=== PATIENT | male | born 1960 | race Caucasian/White ===

== ENCOUNTER 2019-10-20 08:58 | Outpatient (NON) | payer MEDICARE, MEDICAID, SELFPAY ==
[2019-10-20 23:23] LABS: SARS-CoV-2 RNA PCR Negative
== END 2019-10-20 08:59 ==
PROVIDERS: PCP Family Medicine; Visit Provider Family Medicine
DX: Z20.828 Contact with and (suspected) exposure to other viral communicable diseases (principal); J20.9 Acute bronchitis, unspecified
CPT/HCPCS: 87635; C9803; U0003

== ENCOUNTER 2019-11-25 07:51 | Outpatient (CLI) | payer MEDICARE, MEDICAID, SELFPAY ==
--- NOTE | 2019-11-25 07:57 | ECHO_ITS ---
Patient Info Name: Eulalio Arellano Age: 59 years : 1960 Gender: Male Ht: 69 in Wt: 175 lbs BSA: 1.98 m2 HR: 60 bpm BP: 141 / 90 mmHg Heart Rhythm: Sinus Rhythm Technical Quality: Good Exam Date: 11/25/2019 8:11 AM Exam Location: [facility] Pulmonary Patient Status: Outpatient Admit Date: 11/25/2019 Staff Ordering Physician: Deion Medellin MD Senior Salesforce Developer: David Estrada RDCS Attending Provider: Deion Medellin MD Referring Physician: Lacie GERONIMO; Exam Type: CA echo doppler color flow Study Info Indications I10 - Essential (primary) hypertension Complete two-dimensional, color flow and Doppler transthoracic echocardiogram is performed. Strain analysis performed. History/Risk Factors Hypertension. Summary 1. Complete two-dimensional, color flow and Doppler transthoracic echocardiogram is performed. 2. Left ventricular chamber dimension is normal. 3. Left ventricular systolic function is normal, estimated at 60-65%. 4. The left ventricular diastolic function is grade I diastolic dysfunction. 5. E/e' 8 is minimally elevated. 6. Global longitudinal strain is mildly abnormal at -16.3%. 7. There is mild tricuspid valve regurgitation. 8. No pulmonary hypertension, estimated pulmonary arterial systolic pressure is 30 mmHg. Left Ventricle E/e' 8 is minimally elevated. Global longitudinal strain is mildly abnormal at -16.3%. Left ventricular chamber dimension is normal. Left ventricular systolic function is normal, estimated at 60-65%. The left ventricular diastolic function is grade I diastolic dysfunction. Right Ventricle Right ventricular chamber dimension is normal. Right ventricular systolic function is normal. Left Atria Left atrial chamber dimension is normal. Right Atria Right atrial chamber dimension is normal. Aortic Valve The aortic valve is trileaflet. There is no aortic valve stenosis. There is no aortic valve regurgitation. Pulmonic Valve There is no pulmonic regurgitation. Mitral Valve There is no mitral valve stenosis. There is no mitral valve regurgitation. Tricuspid Valve There is mild tricuspid valve regurgitation. No pulmonary hypertension, estimated pulmonary arterial systolic pressure is 30 mmHg. Pericardium/Pleural There is no pericardial effusion. Inferior Vena Cava Normal inferior vena cava with >50% collapse upon inspiration consistent with normal right atrial pressure, 5 mmHg. Aorta The aortic root size at the sinus of Valsalva is normal. Left Ventricular Outflow Tract Name Value Normal LVOT 2D LVOT Diameter 2.0 cm LVOT Doppler LVOT Peak Gradient 4 mmHg LVOT Mean Gradient 2 mmHg LVOT VTI 19 cm LVOT VTI/AV VTI Ratio 0.9 LVOT Stroke Volume 61 ml LVOT CO 3.7 l/min LVOT CI 1.9 l/min/m2 Mitral Valve Name
--- NOTE | 2019-11-25 07:57 | EST_ITS ---
Patient Info Name: Eulalio Arellano Age: 59 years : 1960 Gender: Male Ht: 69 in Wt: 175 lbs BSA: 1.98 m2 Exam Date: 11/25/2019 9:26 AM Exam Location: [facility] Stress Patient Status: Outpatient Admit Date: 11/25/2019 Staff Ordering Physician: Deion Medellin MD Attending Provider: Deion Medellin MD Exercise Technologist: Carlos Subramanian RDCS, RT Exercise Physician: Titi Costello DO Exam Type: CA stress test treadmill Study Info An exercise stress test was performed. Summary 1. 1. Negative Tda exercise stress test for ischemic ST changes by ECG criteria. However, he achieved only 75% MPHR for age group which reduces sensitivity of the test due to sciatica. 2. 2. Reduced functional capacity, achieving 7 METs of workload. 3. 3. Baseline hypertension and hypertensive response to exercise. 4. 4. Appropriate HR response to exercise. 5. 5. Appropriate HR recovery at 1 minute post exercise. 6. 6. No imaging with stress testing. 7. 7. Patient informed of the above results. Protocol: [facility]ad Stress ECG Details Stage: REST Duration (min): 3 min : 34 sec Speed (mph): 0.0 Grade (%): 0 HR (bpm): 66 SBP (mmHg): 165 DBP (mmHg): 112 METS: --- Stage: REST Duration (min): 12 min : 26 sec Speed (mph): 0.0 Grade (%): 0 HR (bpm): 72 SBP (mmHg): 165 DBP (mmHg): 112 METS: --- Stage: STAGE 1 Duration (min): 1 min : 0 sec Speed (mph): 1.7 Grade (%): 10 HR (bpm): 84 SBP (mmHg): 165 DBP (mmHg): 112 METS: --- Stage: STAGE 1 Duration (min): 2 min : 0 sec Speed (mph): 1.7 Grade (%): 10 HR (bpm): 95 SBP (mmHg): 165 DBP (mmHg): 112 METS: --- Stage: STAGE 1 Duration (min): 3 min : 0 sec Speed (mph): 1.7 Grade (%): 10 HR (bpm): 98 SBP (mmHg): 172 DBP (mmHg): 93 METS: --- Stage: STAGE 2 Duration (min): 1 min : 0 sec Speed (mph): 2.5 Grade (%): 12 HR (bpm): 109 SBP (mmHg): 172 DBP (mmHg): 93 METS: --- Stage: STAGE 2 Duration (min): 2 min : 0 sec Speed (mph): 2.5 Grade (%): 12 HR (bpm): 114 SBP (mmHg): 189 DBP (mmHg): 94 METS: --- Stage: STAGE 2 Duration (min): 2 min : 59 sec Speed (mph): 2.5 Grade (%): 12 HR (bpm): 120 SBP (mmHg): 189 DBP (mmHg): 94 METS: --- Stage: RECOVERY Duration (min): 1 min : 0 sec Speed (mph): 0.0 Grade (%): 0 HR (bpm): 111 SBP (mmHg): 189 DBP (mmHg): 94 METS: --- Stage: RECOVERY Duration (min): 2 min : 0 sec Speed (mph): 0.0 Grade (%): 0 HR (bpm): 95 SBP (mmHg): 189 DBP (mmHg): 94 METS: --- Stage: RECOVERY Duration (min): 3 min : 0 sec Speed (mph): 0.0 Grade (%): 0 HR (bpm): 96 SBP (mmHg): 220 DBP (mmHg): 117 METS: --- Stage: RECOVERY Duration (min): 4 min : 0 sec Speed (mph): 0.0 Grade (%): 0 HR (bpm): 85 SBP (mmHg): 220 DBP (mmHg): 117
--- NOTE | 2019-11-25 08:06 | ECG_ITS ---
Measurements Intervals [place] Rate: 65 P: 70 MA: 181 QRS: 9 QRSD: 86 T: 46 QT: 367 QTc: 383 Interpretive Statements SINUS RHYTHM RSR' IN V1 OR V2, PROBABLY NORMAL VARIANT BORDERLINE ECG Electronically Signed On 11-25-2019 8:20:30 CDT by Titi Costello D.O.
== END 2019-11-25 07:52 | disposition home or self-care (01) ==
PROVIDERS: PCP Family Medicine; Visit Provider Family Medicine
DX: I10 Essential (primary) hypertension (principal); R53.83 Other fatigue; R94.31 Abnormal electrocardiogram [ECG] [EKG]
CPT/HCPCS: 93005; 93017; 93306

== ENCOUNTER → 2019-12-31 16:44 | Outpatient (CLI) | payer MEDICARE, MEDICAID, SELFPAY ==
--- NOTE | ~2019-12-31 | XR_ITS ---
XR chest 2V 12/31/2019 17:05 Indication: Cough for 3-4 months. Fatigue. Procedure: 2 view chest Comparison: 11/25/2017 Findings: There is asymmetry at the right apex. Follow-up CT chest with contrast recommended to exclu de parenchymal mass. Heart size normal. Left basilar atelectasis. No pneumothorax. No acute osseous a bnormality. Impression: 1: Asymmetric opacification at the right apex. Follow-up CT recommended to exclude parenchymal mass. Reviewed, dictated and finalized at location A. Impression: 1: Asymmetric opacification at the right apex. Follow-up CT recommended to excl ude parenchymal mass.
== END ==
PROVIDERS: PCP Family Medicine; Visit Provider Family Medicine
DX: R53.83 Other fatigue (principal)
CPT/HCPCS: 71046

== ENCOUNTER 2020-01-05 07:53 | Outpatient (CLI) | payer MEDICARE, MEDICAID, SELFPAY ==
--- NOTE | ~2020-01-05 | CT_ITS ---
EXAMINATION: CT chest w con DATE: 01/05/2020 08:32 INDICATION: Right-sided chest pain TECHNIQUE: Transaxial computed tomographic images of the chest were obtained after the administration of 75 cc of Omnipaque 350 intravenous contrast. The dose-length product (DLP) was 188.90 mGy-cm. Ite rative reconstruction was used. COMPARISON: 12/31/2019 FINDINGS: No CT correlate is identified for the abnormality described on the chest radiograph. There is moderate emphysema. There is a 5 mm nodule of the right middle lobe on image 64. A 5 mm nodule is also noted in the right upper lobe on image 61. There is mild dependent atelectasis. No focal airspac e opacities are identified. There is no pleural effusion or pneumothorax. No pathologically enlarged thoracic lymph nodes are identified. The heart size is normal. There is mild thoracic spondylosis. IMPRESSION: 1. No CT correlate for the abnormality described on recent chest radiograph. 2. Moderate emphysema. 3. Right lung nodules measuring up to 5 mm which may reflect old granulomatous disease. Consider foll ow-up CT in 12 months. Reviewed, dictated and finalized at location A. MENT PROCESSOR IMPRESSION: 1. No CT correlate for the abnormality described on recent chest radiograph. 2. Moderate emphysema. 3. Right lung nodules measuring up to 5 mm which may reflect old granulomatous disease. Consider follow-up CT in 12 months.
--- NOTE | ~2020-01-05 | CT_ITS ---
EXAMINATION: CT brain wo con EXAM DATE: 01/05/2020 08:32 INDICATION: R41.0 - Disorientation, unspecified. Right-sided chest pain. Feeling of balance. Cough. TECHNIQUE: Spiral CT of the head was performed without contrast. Axial, coronal and sagittal images were reviewed. The dose-length product (DLP) for this examination was 681.00 mGy-cm. The exposure w as tailored according to patient size, and iterative reconstruction (ASIR) was used as additional dos e reduction technique. Comparison is made to prior examination from 12/15/2003. FINDINGS: There is no acute intraparenchymal hemorrhage. No evidence of intraparenchymal brain mass lesion. No evidence of acute infarction. There is no mass effect or midline shift. The ventricles are normal in size. There are no extra-axial collections. There are no acute calvarial fractures. T he orbits are unremarkable. Soft tissue is unremarkable. The visualized sinuses and mastoid air yvrose ls are well aerated. IMPRESSION: 1. Unremarkable head CT examination. Reviewed, dictated and finalized at location B. OWING MACHINE OPERATOR
== END 2020-01-05 07:54 | disposition home or self-care (01) ==
PROVIDERS: PCP Family Medicine; Visit Provider Family Medicine
DX: R27.0 Ataxia, unspecified (principal); R41.0 Disorientation, unspecified; J43.9 Emphysema, unspecified; R92.8 Other abnormal and inconclusive findings on diagnostic imaging of breast
CPT/HCPCS: 70450; 71260; Q9967

== ENCOUNTER 2020-12-27 12:44 | Outpatient (CLI) | payer MEDICARE, MEDICAID, SELFPAY ==
--- NOTE | ~2020-12-27 | XR_ITS ---
EXAMINATION: XR knee LT 3V DATE: 12/27/2020 13:10 INDICATION: Medial left knee pain. TECHNIQUE: 3 views of left knee were obtained. COMPARISON: None. FINDINGS: Bone alignment is normal. No fracture. There is mild osteoarthritis of medial and patellofe moral compartments characterized by tiny marginal osteophytes. No joint space narrowing. No knee join t effusion. IMPRESSION: 1. Mild left knee osteoarthritis. Reviewed, dictated and finalized at location A.
== END 2020-12-27 12:45 | disposition home or self-care (01) ==
LOC: ANHIMG 12:50
PROVIDERS: PCP Family Medicine; Visit Provider Family Medicine
DX: M17.12 Unilateral primary osteoarthritis, left knee (principal)
CPT/HCPCS: 73562

== ENCOUNTER 2021-03-20 03:24 | Emergency (ER) | payer MEDICARE, MEDICAID, SELFPAY ==
[2021-03-20] VITALS (10 sets, daily range): BP systolic 120–145; BP diastolic 91–102; PULSE 96–114; RESP 18–20; TEMP 36.2; O2SAT 96–99
--- NOTE | 2021-03-20 04:08 | ED.BACK ---
HPI - Back Pain/Injury General Chief Complaint: Back Pain/Injury Stated Complaint: lower back pain chronic Time Seen by Provider: 03/20/21 04:06 History of Present Illness HPI Narrative: Patient is a 60-year-old male with history of chronic low back pain as well as back surgery who presents ER with increased pain. Reports he recently returned from a trip to [facility]. Reports when he came back and hit the cold air he started having spasms in his back. Worsening over the last 5 days. Reports he stopped taking his home oxycodone/meloxicam/cyclobenzaprine/Lyrica because he was having increase in his pain and the medications were not helping and he did not want to potentially abuse his medication. He has no fevers or chills or sweats. Has chronic radicular discomfort that goes down his right leg that is worse at this time due to the pain. No difficulty with urination/defecation. No known trauma. Patient is able to walk. Pain is worse with movement. Related Data Allergies Allergy/AdvReac Type Severity Reaction Status Date / Time No Known Allergies Allergy Verified 03/20/21 03:25 Review of Systems Review of Systems: All systems reviewed & are unremarkable except as noted in HPI and below Constitutional: Constitutional: Denies chills, Denies fever(s) and Denies weakness Cardiovascular: Cardiovascular: Denies chest pain and Denies radiating jaw, neck or arm pain Gastrointestinal: Gastrointestinal: Denies abdominal pain, Denies nausea and Denies vomiting Musculoskeletal: Musculoskeletal: Reports back pain, Denies arthralgias, Denies joint swelling and Reports muscle cramps Neurologic: Denies headache(s), Denies focal weakness and Denies numbness [facility] Past Medical History Medical History (Updated 03/20/21 @ 06:11 by Yang Dudley MD) Abnormal chest x-ray Acne vulgaris Actinic keratosis Acute bronchitis Anxiety Asthma Ataxia Back pain BMI 27.0-27.9,adult BMI 28.0-28.9,adult Confusion COPD (chronic obstructive pulmonary disease) Encounter for screening colonoscopy Fatigue Folliculitis (~10/19/20) Gastro-esophageal reflux disease without esophagitis Hemorrhoids Knee pain, left Peptic ulcer disease Skin ulceration Tick bite Tobacco use disorder, continuous Vitamin B12 deficiency anemia Surgical History Surgical History (Updated 03/20/21 @ 06:11 by Yang Dudley MD) History of back surgery Family History Family History Mother Patient's mother is , Onset Age: 76 Father Patient's father is , Onset Age: 79 Social History Social History Smoking status: Current every day smoker Alcohol intake: never Substance use: current Gender identity (if verbalized by the patient): Male Exam Narrative: GENERAL: Uncomfortable-appearing, well-nourished, and in no acute distress. HEAD: Normocephalic, atraumatic. NECK: Supple. CHEST: Clear to auscultation. No respiratory distress. HEART: Regular rate and rhythm. Normal peripheral pulses. ABDOMEN: Soft, nontender, nondistended. Back: No reproducible midline tenderness of the T/L-spine. There is increased pain in the L4 region of the low back paraspinal musculature bilaterally with palpable spasm. No bruising or abrasion. No evidence of cellulitis. EXTREMITIES: Normal range of motion. No edema. SKIN: Warm, dry, no rash. NEURO: Alert and oriented x3. Course Course Emergency Course: Patient reports improvement in his pain with IV Valium and Toradol. Feels he can go home and restart his home medication to control his pain. Recommend follow-up with PCP. Vital Signs Vital signs: Vital Signs Temperature 97.2 F L 03/20/21 03:28 Pulse Rate 114 H 03/20/21 03:28 Respiratory Rate 20 03/20/21 03:28 Blood Pressure 145/102 H 03/20/21 03:28 Pulse Oximetry 98 03/20/21 03:28 Temperatur
[2021-03-20] MEDS: KETOROLAC 30 MG/ML VIAL (*BKC) IV PUSH (04:44)
[2021-03-20] MEDS: diazePAM INJ (*CRX) 10 MG/2 ML SYRINGE 5 MG IV PUSH (04:44)
== END 2021-03-20 06:34 | disposition home or self-care (01) ==
PROVIDERS: Emergency Provider Emergency Medicine; PCP Family Medicine
DX: M62.830 Muscle spasm of back (principal); J44.9 Chronic obstructive pulmonary disease, unspecified; K21.9 Gastro-esophageal reflux disease without esophagitis; D51.9 Vitamin B12 deficiency anemia, unspecified; G89.29 Other chronic pain; F41.9 Anxiety disorder, unspecified; Z87.11 Personal history of peptic ulcer disease; F17.200 Nicotine dependence, unspecified, uncomplicated
CPT/HCPCS: 96374; 96375; 99284; J1885; J3360

== ENCOUNTER 2021-06-05 09:23 | Emergency (ER) | payer MEDICARE, SELFPAY ==
[2021-06-05] VITALS (18 sets, daily range): BP systolic 104–125; BP diastolic 66–111; PULSE 83–113; RESP 10–28; O2SAT 92–96
--- NOTE | ~2021-06-05 | XR_ITS ---
EXAMINATION: XR chest 2V DATE: 06/05/2021 10:45 INDICATION: Shortness of breath and cough. TECHNIQUE: Frontal and lateral views of the chest were obtained. COMPARISON: Chest 2 views 12/31/2019, chest CT 01/05/2020 FINDINGS: There are airspace opacities in right upper lobe, consistent with pneumonia. No pleural eff usion or pneumothorax. The heart size is normal. IMPRESSION: 1. Right upper lobe pneumonia. Follow-up radiographs are recommended in a few weeks to confirm resolu tion and exclude malignancy. Reviewed, dictated and finalized at location A. IMPRESSION: 1. Right upper lobe pneumonia. Follow-up radiographs are recommended in a few w eeks to confirm resolution and exclude malignancy.
--- NOTE | ~2021-06-05 | CT_ITS ---
EXAMINATION: CTA chest PE protocol DATE: 06/05/2021 11:21 INDICATION: Chest pain. Elevated d-dimer. TECHNIQUE: Computed tomography (CT) pulmonary angiogram of the chest was performed with 100 mL Omnipa que-350 intravenous contrast. Additional 3D reconstructions utilizing coronal maximum intensity proje ction (MIP) were performed. Automated exposure control and iterative reconstruction technique were em ployed. The dose-length product was 360.10 mGy-cm. COMPARISON: CT dated 02/01/2020 FINDINGS: Excellent contrast opacification of the pulmonary arteries. There is mild streak artifact from dense contrast in the superior vena cava and right atrium. Mild scattered respiratory motion artifact in th e lower lung zones which does not significantly limit evaluation. No pulmonary embolism. Moderate emp hysema. Contrast-enhanced pulmonary vasculature extends without significant architectural distortion through a large region of consolidation in the right upper lobe with less dense airspace disease incl uding both simple and thickening and groundglass opacities throughout much of the remaining right upp er lobe as well as in the posterior aspect of the right middle lobe. This be most consistent with pne umonia. Left lung is clear. No pulmonary edema, pleural effusion or pneumothorax. Heart size is luisana l. No pericardial effusion. Thoracic aorta is normal in caliber with no dissection. Likely reactive m ediastinal and right hilar lymphadenopathy. Visualized upper abdomen is unremarkable. Mild thoracic a nd severe lower cervical spondylosis. IMPRESSION: 1. No pulmonary embolism. 2. Dense consolidation in the right upper lobe with additional less severe lung disease in additional portion of the right upper lobe and right middle lobe most consistent with pneumonia. 3. Likely reactive mediastinal and right hilar lymphadenopathy. 4. Moderate emphysema. Reviewed, dictated and finalized at location B. IMPRESSION: 1. No pulmonary embolism. 2. Dense consolidation in the right upper lobe with additional less severe lung disease in additional portion of the right upper lobe and right middle lobe mo st consistent with pneumonia. 3. Likely reactive mediastinal and right hilar lymphadenopathy. 4. Moderate emphysema.
--- NOTE | 2021-06-05 09:27 | ED.SOB ---
HPI - SOB/Dyspnea General Chief Complaint: Shortness of Breath/Dyspnea <Amber Malik PA-C - Last Filed: 06/05/21 13:00> Stated Complaint: sob <TAVIA Urias Last Filed: 06/05/21 13:00> Time Seen by Provider: 06/05/21 09:27 <TAVIA Urias Last Filed: 06/05/21 13:00> Source: patient <TAVIA Urias Last Filed: 06/05/21 13:00> Mode of arrival: ambulatory <TAVIA Urias Last Filed: 06/05/21 13:00> Limitations: no limitations <TAVIA Urias Last Filed: 06/05/21 13:00> History of Present Illness HPI Narrative: Patient is a 61-year-old male with a past medical history of COPD, who presents to the ED with report of increased shortness of breath. He reports having increased shortness of breath, worse with exertion, for the past 4 days. He also reports having a productive cough with brown and white sputum and bilateral lower chest wall pain with coughing. Denies any known fever, but has had chills at home. No chest pain at rest, only with coughing. No swelling in the legs, pain in legs. Patient does not wear oxygen at home. Oxygen 94% on room air upon arrival. He reports he quit smoking 3 years ago. He has a history of chronic low back pain and is on several different pain medicines but states he has been in too much pain to take these over the past couple days. Patient does see his PCP for pain management. He reports he called his PCP about his SOB/cough last week and was required to take a Covid test, which was negative, but he did not end up seeing his doctor. Patient denies any saddle anesthesia, urinary retention, urinary incontinence, weakness in his legs. No new injury or fall. <TAVIA Urias Last Filed: 06/05/21 13:00> Related Data Allergies/Adverse Reactions: Allergies Allergy/AdvReac Type Severity Reaction Status Date / Time No Known Allergies Allergy Verified 03/20/21 03:25 <TAVIA Urias Last Filed: 06/05/21 13:00> Review of Systems Review of Systems: CONSTITUTIONAL: Denies fever, chills, or sweats. EYES: Denies visual changes, redness, or discharge. ENT: Denies rhinorrhea, congestion, sore throat, or otalgia. CARDIOVASCULAR: Denies chest pain, palpitations, or edema. RESPIRATORY: Denies cough or dyspnea. GASTROINTESTINAL: Denies abdominal pain, nausea, vomiting, or diarrhea. GENITOURINARY: Denies dysuria or hematuria. SKIN: Denies rash or itching. MUSCULOSKELETAL: Denies back pain, joint pain, or myalgia. NEUROLOGIC: Denies headache, numbness, or weakness. PSYCHIATRIC: Denies anxiety or depression. <Amber Malik PA-C - Last Filed: 06/05/21 13:00> All systems reviewed & are unremarkable except as noted in HPI and below <Amber Malik PA-C - Last Filed: 06/05/21 13:00> [facility] Past Medical History Medical History: Medical History Abnormal chest x-ray Acne vulgaris Actinic keratosis Acute bronchitis Anxiety Asthma Ataxia Back pain BMI 27.0-27.9,adult BMI 28.0-28.9,adult Chronic hip pain, bilateral Confusion COPD (chronic obstructive pulmonary disease) Encounter for screening colonoscopy Fatigue Folliculitis (~10/19/20) Gastro-esophageal reflux disease without esophagitis Hemorrhoids Knee pain, left Peptic ulcer disease Skin ulceration Tick bite Tobacco use disorder, continuous Vitamin B12 deficiency anemia <Amber Malik PA-C - Last Filed: 06/05/21 13:00> Surgical History Surgical History: Surgical History History of back surgery <Amber Malik PA-C - Last Filed: 06/05/21 13:00> Family History Family History: Family History Mother Patient's mother is , Onset Age: 76 Father Patient's father is , Onset Age: 79 <TAVIA Urias Last Filed: 06/05/21 13:00>
--- NOTE | 2021-06-05 09:36 | ECG_ITS ---
Measurements Intervals [place] Rate: 101 P: 69 UT: 163 QRS: 15 QRSD: 86 T: 52 QT: 323 QTc: 420 Interpretive Statements SINUS TACHYCARDIA ABNORMAL RHYTHM ECG COMPARED TO ECG 11/25/2019 08:14:28 SINUS TACHYCARDIA NOW PRESENT Electronically Signed On 06-06-2021 16:43:48 CDT by Montserrat Butcher M.D.
[2021-06-05] MEDS: KETOROLAC 30 MG/ML VIAL (*BKC) IV PUSH (09:59)
[2021-06-05 10:17] LABS: Basophils Percent Auto 0.2 % (0.2-1.2); Hematocrit 36.5 % (42.0-52.0); Hemoglobin 11.7 g/dL (14.0-18.0); Immature Granulocyte Absolute 0.27 K/mm3 (0.00-0.031); Immature Granulocyte Percent A 1.1 % (0-0.5); Lymphocytes Absolute Auto 1.71 K/mm3 (0.9-3.2); Lymphocytes Percent Auto 7.1 % (18.3-44.2); Mean Corpuscular HGB Conc 32.1 g/dl (32-36); Mean Corpuscular Volume 96.8 fl (80-100); Mean Platelet Volume 11.9 fl (7.4-10.4); Monocytes Absolute Auto 1.1 K/mm3 (0.1-0.6); Monocytes Percent Auto 4.6 % (2.6-8.5); Neutrophils Absolute Auto 20.8 K/mm3 (1.3-6.7); Platelet Count Result 603 k/mm3 (150-375); Red Blood Count 3.77 M/mm3 (4.6-6.20); Red Cell Distribution Width 14.6 % (11.5-14.5)
[2021-06-05 10:27] LABS: Alanine Aminotransferase 23 U/L (4-50); Albumin Level 3.7 g/dL (3.5-5.1); Alkaline Phosphatase 586 U/L (38-126); Anion Gap 10 mmol/L (8-16); Aspartate Amino Transferase 109 U/L (17-59); Bilirubin,Total 1.6 mg/dL (0.2-1.3); Blood Urea Nitrogen 29 mg/dL (9-20); Calcium 8.5 mg/dL (8.4-10.2); Carbon Dioxide 26 mmol/L (22-30); Chloride 100 mmol/L (98-107); Estimated CRCL calculation 57 ml/min; Estimated Glomerular Filt Rate > 60; Glucose 130 mg/dL (65-110); Potassium 4.2 mmol/L (3.4-5.0); Sodium 136 mmol/L (137-145)
[2021-06-05 10:37] LABS: Troponin I < 0.012 ng/mL (0.000-0.034)
[2021-06-05 11:02] LABS: D Dimer 2.34 ug/mL (<0.48)
--- NOTE | 2021-06-05 11:09 | PC.NURSE ---
pt ambulated around the nurses station maintaining pulse ox of 97%
== END 2021-06-05 12:50 | disposition home or self-care (01) ==
PROVIDERS: Physician Assistant; Emergency Provider Emergency Medicine; PCP Family Medicine
DX: J18.9 Pneumonia, unspecified organism (principal); J44.0 Chronic obstructive pulmonary disease with (acute) lower respiratory infection; F41.9 Anxiety disorder, unspecified; Z87.09 Personal history of other diseases of the respiratory system; Z87.19 Personal history of other diseases of the digestive system; Z87.891 Personal history of nicotine dependence
CPT/HCPCS: 36415; 71046; 71275; 80053; 84484; 85025; 85380; 93005; 96374; 99284; J1885; Q9967

== ENCOUNTER → 2021-06-12 09:01 | Outpatient (CLI) | payer MEDICARE, SELFPAY ==
[2021-06-12 11:47] LABS: SARS-CoV-2 RNA PCR Negative
== END ==
PROVIDERS: PCP Family Medicine; Visit Provider Family Medicine
DX: J18.9 Pneumonia, unspecified organism (principal); Z20.822 Contact with and (suspected) exposure to COVID-19
CPT/HCPCS: C9803; U0003; U0005

== ENCOUNTER → 2021-07-12 12:09 | Outpatient (CLI) | payer MEDICARE, MEDICAID, SELFPAY ==
--- NOTE | ~2021-07-12 | XR_ITS ---
XR chest 2V DATE: 07/12/2021 12:21 INDICATION: Chronic infective pulmonary disease. Smoker. TECHNIQUE: 2 views COMPARISON: 06/05/2021 CT pulmonary scan 06/05/2021 2 view chest 01/05/2020 CT chest FINDINGS: There is residual increased density in the right upper lung/apical area. Continued radiogra phic follow-up is recommended to ensure complete clearing in order to exclude any possible pulmonary mass/malignancy. The lungs otherwise appear clear. No pleural effusion or pulmonary vascular congestion or pneumothorax. Normal heart size. Mild aortic unfolding. Included skeletal structures are unremarkable. IMPRESSION: Persistent right upper lobe/apical increased density; continued radiographic follow-up is recommended to assure complete clearing, in order to exclude any possible pulmonary malignancy Reviewed, dictated and finalized at location B. IMPRESSION: Persistent right upper lobe/apical increased density; continued rad iographic follow-up is recommended to assure complete clearing, in order to exc lude any possible pulmonary malignancy
== END ==
PROVIDERS: PCP Family Medicine; Visit Provider Family Medicine
DX: J44.9 Chronic obstructive pulmonary disease, unspecified (principal)
CPT/HCPCS: 71046

== ENCOUNTER 2021-09-18 08:15 | Outpatient (CLI) | payer MEDICARE, MEDICAID, SELFPAY ==
--- NOTE | 2021-10-10 20:13 | WPDSLEEPSTUD ---
Sleep Study Date of Study: 09/18/21 Ordering Provider: Solo Orellana MD Interpreting Physician: Jacquelin Otero DO Sleep Study Type: Polysomnogram Height: 1.73 m Weight: 86.183 kg Body Mass Index: 28.8 Neck Circumference (inches): 15 [place]: 16 Reason for Sleep Study Snoring, daytime hypersomnia, unrefreshing sleep Sleep History The patient is a 61-year-old male with COPD, anxiety, asthma, GERD and tobacco use disorder that had a sleep study ordered by his cashier checker for evaluation of GINNY. The patient rarely awakens from sleep short of breath. He rarely awakens at night with heartburn, belching or cough. He rarely snores but it is occasionally loud enough that others complain. The patient denies grinding his teeth during sleep. He is constantly bothered by pain during the day and frequently awakened by pain during the night. He frequently wakes up feeling stiff in the morning. He frequently wakes up with sore achy muscles. He constantly wakes up with pain in the neck, spine and other joints. *The patient did not fill out the majority of the sleep intake forms.* He goes to bed at midnight on both weekdays and weekends. He wakes up 1-2 times throughout the night. He wakes up between 7-8 a.m. on weekdays and weekends. He typically gets 8-10 hours of sleep per day. He currently lives alone. He does not consume any caffeinated beverages within 2 hours of bedtime. He does not engage in physical exercise before bedtime. He denies reading and watching television before falling asleep. He will take naps in the afternoon or the evening but they are not refreshing. He currently smokes half a pack of cigarettes per day. He denies caffeine, alcohol and recreational drug use. [facility] Past Medical History Medical History Abnormal chest x-ray Acne vulgaris Actinic keratosis Acute bronchitis Anxiety Asthma At high risk for falls Ataxia Back pain BMI 27.0-27.9,adult BMI 28.0-28.9,adult Chronic hip pain, bilateral Confusion COPD (chronic obstructive pulmonary disease) Encounter for screening colonoscopy Fatigue Thyroid function is normal with TSH 2.22 and free T4 of 1.0 on 07/12/2021. Folliculitis (~10/19/20) Gastro-esophageal reflux disease without esophagitis Hemorrhoids Knee pain, left Overweight (BMI 25.0-29.9) Peptic ulcer disease Pneumonia (06/05/21) right upper lobe infiltrate 06/05/2021. Persistent nodular density right upper lobe on chest x-ray 07/12/2021. Skin ulceration Tick bite Tobacco use disorder, continuous Vitamin B12 deficiency anemia Vitamin B12 level normal at 470 with folic acid 11.2 and hemoglobin 14.0 on 07/12/2021. Surgical History Surgical History History of back surgery Family History Family History Mother Patient's mother is , Onset Age: 76 Father Patient's father is , Onset Age: 79 Social History Social History Smoking packs per day: 0.5 Smoking cigarettes per day: 10.0 Smoking status: Current every day smoker Tobacco type: cigarettes Alcohol intake: never Substance use: never Gender identity (if verbalized by the patient): Male Medications Home Medications Medication Instructions Recorded Confirmed Type albuterol sulfate 90 mcg/actuation 2 inh inhalation Q4H PRN shortness 01/07/20 08/30/21 Rx aerosol inhaler (ProAir HFA) of breath or wheezing #18 grams duloxetine 60 mg capsule,delayed 60 mg PO DAILY #30 caps 01/05/21 08/30/21 Rx release (Cymbalta) meloxicam 7.5 mg tablet 7.5 mg PO BID pain #60 tabs 02/07/21 08/30/21 Rx pregabalin 150 mg capsule (Lyrica) 150 mg PO BID #60 caps 04/10/21 08/30/21 Rx oxycodone-acetaminophen 10 mg-325 1 tablet PO Q6H PRN pain #120 tabs
[2021-10-11 06:07] VITALS: BMI 28.8
--- NOTE | 2022-05-09 08:55 | SLEEP ---
new calls [phone]
== END 2021-09-19 06:24 | disposition home or self-care (01) ==
LOC: ANHCSM 08:15
PROVIDERS: PCP Family Medicine; Visit Provider Internal Medicine Pulmonary Disease
DX: G47.33 Obstructive sleep apnea (adult) (pediatric) (principal); J43.9 Emphysema, unspecified
CPT/HCPCS: 95810

== ENCOUNTER 2021-10-03 06:50 | Outpatient (CLI) | payer MEDICARE, MEDICAID, SELFPAY ==
--- NOTE | ~2021-10-03 | CT_ITS ---
EXAMINATION: CT chest abdomen wo con DATE: 10/03/2021 07:34 INDICATION: Cough TECHNIQUE: Computed tomography (CT) of the chest and abdomen was performed without intravenous contra st. Automated exposure control and iterative reconstruction technique were employed. Exam dose: 708. 03 mGy-cm total exam DLP. COMPARISON: 06/05/2021 CTA chest 07/12/2021 2 view chest FINDINGS: CHEST CT: There is residual infiltrate and/or scarring involving the right upper lobe, primarily the right apic al area, with considerable improvement of the severe consolidation in this area on 06/05/2021. There is resolution of prior infiltrate in the remainder of the right upper and middle lobes since 06/05/2021. Moderately prominent emphysematous changes of the lungs are noted. No obstructing endobronchial lesio n is identified. No infiltrate or consolidation is noted elsewhere in the lungs. Interval resolution of reactive hilar and mediastinal lymphadenopathy since 06/05/2021. Normal heart size. No pericardial or pleural effusion. No hilar or mediastinal mass lesion or lymphad enopathy. No thoracic aortic aneurysm. ABDOMEN/PELVIS CT: Hepatic steatosis. No hepatic, splenic, pancreatic, adrenal or renal space-occupying mass lesion is e vident on this limited noncontrast examination. The gallbladder is present. No gallbladder wall thick ening or pericholecystic fluid or fat stranding. No bile duct or pancreatic duct dilatation. Occasion al pancreatic calcifications, consistent with chronic pancreatitis. There is atherosclerotic calcification but normal caliber of the abdominal aorta and common iliac art eries. No intraperitoneal or retroperitoneal or pelvic mass lesion or adenopathy or ascites is evident. Small fat-containing umbilical hernia. No bowel obstruction or intraperitoneal free air. Status post lumbosacral posterior surgical spinal fusion with pedicle screws and rods. There is moder ate degenerative disc disease and mild retrolisthesis at L4-5. There is degenerative change at the apophyseal joints with associated minimal grade 1 anterolisthesis and mild degenerative disc disease at L3-4. Prominent degenerative disc disease at C6-7. No suspicious osteolytic or osteoblastic lesions are noted. IMPRESSION: Mild residual infiltrate and/or scarring in the right upper lobe, substantially improved since 06/2021; no obstructing endobronchial lesion is noted. Resolution of mild hilar and mediastina l adenopathy. Emphysema Hepatic steatosis Chronic pancreatitis Reviewed, dictated and finalized at [facility]. Reviewed, dictated and finalized at location B. IMPRESSION: Mild residual infiltrate and/or scarring in the right upper lobe, substantially improved since 06/2021; no obstructing endobronchial lesion is no brandy. Resolution of mild hilar and mediastinal adenopathy. Emphysema Hepatic steatosis Chronic pancreatitis
== END 2021-10-03 06:51 | disposition home or self-care (01) ==
PROVIDERS: PCP Family Medicine; Visit Provider Internal Medicine Pulmonary Disease
DX: J18.9 Pneumonia, unspecified organism (principal); J43.9 Emphysema, unspecified; K76.0 Fatty (change of) liver, not elsewhere classified; K86.1 Other chronic pancreatitis
CPT/HCPCS: 71250; 74150

== ENCOUNTER 2022-01-10 07:45 | Outpatient (CLI) | payer MEDICARE, MEDICAID, SELFPAY ==
--- NOTE | 2022-02-16 19:47 | WPDSLEEPSTUD ---
Sleep Study Date of Study: 01/10/22 Ordering Provider: Solo Orellana MD Interpreting Physician: Antonia Lott MD Sleep Study Type: CPAP Titration Height: 1.73 m Weight: 83.915 kg Body Mass Index: 28.1 Neck Circumference (inches): 15 [place]: 2 Reason for Sleep Study Snoring, hypersomnolence * 09/18/2021, basic nocturnal polysomnogram with an AHI of 6.4, supine AHI was 17.8, desaturation 86%; abnormally decreased saturation, 20.9% of the study, 93.2 minutes spent with saturation below 88% consistent with COPD, he returns for CPAP titration. Sleep History Eulalio Arellano is a 61-year-old male with COPD GINNY overlap, anxiety, asthma, GERD and tobacco use disorder. The patient rarely awakens from sleep short of breath.? He rarely awakens at night with heartburn, belching or cough.? He rarely snores but it is occasionally loud enough that others complain.? The patient denies grinding his teeth during sleep.? He is constantly bothered by pain during the day and frequently awakened by pain during the night.? He frequently wakes up feeling stiff in the morning.? He frequently wakes up with sore achy muscles.? He constantly wakes up with pain in the neck, spine and other joints.?*The patient did not fill out the majority of the sleep intake forms.* He goes to bed at midnight on both weekdays and weekends.? He wakes up 1-2 times throughout the night.? He wakes up between 7-8 a.m. on weekdays and weekends.? He typically gets 8-10 hours of sleep per day.? He currently lives alone.? He does not consume any caffeinated beverages within 2 hours of bedtime.? He does not engage in physical exercise before bedtime.? He denies reading and watching television before falling asleep.? He will take naps in the afternoon or the evening but they are not refreshing.? He currently smokes half a pack of cigarettes per day.? He denies caffeine, alcohol and recreational drug use. PMFSH Past Medical History Medical History Abnormal chest x-ray Acne vulgaris Actinic keratosis Acute bronchitis Anxiety Asthma At high risk for falls Ataxia Back pain BMI 27.0-27.9,adult BMI 28.0-28.9,adult BMI 29.0-29.9,adult Chronic hip pain, bilateral Confusion COPD (chronic obstructive pulmonary disease) Encounter for screening colonoscopy Fatigue Thyroid function is normal with TSH 2.22 and free T4 of 1.0 on 07/12/2021. Folliculitis (~10/19/20) Gastro-esophageal reflux disease without esophagitis Hemorrhoids Knee pain, left GINNY (obstructive sleep apnea) (~2021) Overweight (BMI 25.0-29.9) Peptic ulcer disease Pneumonia (06/05/21) right upper lobe infiltrate 06/05/2021. Persistent nodular density right upper lobe on chest x-ray 07/12/2021. Skin ulceration Tick bite Tobacco use disorder, continuous Vitamin B12 deficiency anemia Vitamin B12 level normal at 470 with folic acid 11.2 and hemoglobin 14.0 on 07/12/2021. Surgical History Surgical History History of back surgery Family History Family History Mother Patient's mother is , Onset Age: 76 Father Patient's father is , Onset Age: 79 Social History Social History Smoking packs per day: 0.5 Smoking cigarettes per day: 10.0 Smoking status: Current every day smoker Tobacco type: cigarettes Alcohol intake: never Substance use: never Lack of Transportation: No Lack of Food: Often True Current Housing: I Have Housing Concerned About Future Housing: Decline to Answer Difficulty Paying Gas/Electric Bills: YES Difficulty Paying for Meds: No Currently Unemployed: No Education: High School Diploma/GED Difficulty w/ Childcare or Family Care: No Gender identity (if verbalized by the patient): Male Sexual Orientation (if Verbali
[2022-02-17 15:10] VITALS: BMI 28.1
== END 2022-01-11 06:06 | disposition home or self-care (01) ==
PROVIDERS: PCP Family Medicine; Visit Provider Internal Medicine Pulmonary Disease
DX: G47.33 Obstructive sleep apnea (adult) (pediatric) (principal)
CPT/HCPCS: 95811

== ENCOUNTER → 2022-08-02 14:52 | Outpatient (CLI) | payer MEDICARE, MEDICAID, SELFPAY ==
--- NOTE | ~2022-08-02 | XR_ITS ---
EXAMINATION: XR shoulder RT min 2V INDICATION: Right shoulder pain TECHNIQUE: Four views of the right shoulder are submitted. COMPARISON: None FINDINGS: Normal alignment. No fracture. There is mild osteoarthritis of the glenohumeral and acromio clavicular joints. Soft tissues are unremarkable. IMPRESSION: 1. Mild osteoarthritis without acute osseous abnormality. Reviewed, dictated and finalized at location L.
== END ==
PROVIDERS: PCP Family Medicine; Visit Provider Family Medicine
DX: M75.41 Impingement syndrome of right shoulder (principal); M19.011 Primary osteoarthritis, right shoulder
CPT/HCPCS: 73030

== ENCOUNTER → 2022-10-22 14:38 | Outpatient (CLI) | payer MEDICARE, MEDICAID, SELFPAY ==
--- NOTE | ~2022-10-22 | XR_ITS ---
EXAMINATION: XR hand RT 2V DATE: 10/22/2022 14:55 INDICATION: Pain at the fingers of both hands. TECHNIQUE: 1. Posteroanterior, oblique and lateral views of the left hand were obtained. 2. Posteroanterior and lateral views of the right hand were obtained. COMPARISON: None. FINDINGS: No fracture at either hand or wrist. 2-3 mm ulnar minus variance at both wrists. Mild swan-neck defor mity at the left fifth digit with moderate osteoarthritis at the left fifth proximal interphalangeal joint.. Moderate osteoarthritis with mild volar subluxation at the bilateral second metacarpophalange al joints. Additional polyarticular osteoarthritis at the bilateral hands and wrists, mild to moderat e at the right third metacarpophalangeal joint and mild at the bilateral distal radioulnar, triscaphe , first carpometacarpal, 50 metacarpophalangeal and many of the remaining interphalangeal joints. No erosions to suggest inflammatory arthritis. IMPRESSION: 1. Polyarticular osteoarthritis at the bilateral hands and wrists, moderate severity at the left fift h proximal interphalangeal and bilateral second metacarpophalangeal joints. Reviewed, dictated and finalized at location A. IMPRESSION: 1. Polyarticular osteoarthritis at the bilateral hands and wrists, moderate sev erity at the left fifth proximal interphalangeal and bilateral second metacarpo phalangeal joints.
--- NOTE | ~2022-10-22 | XR_ITS ---
EXAMINATION: XR hand LT 2V DATE: 10/22/2022 14:55 INDICATION: Pain at the fingers of both hands. TECHNIQUE: 1. Posteroanterior, oblique and lateral views of the left hand were obtained. 2. Posteroanterior and lateral views of the right hand were obtained. COMPARISON: None. FINDINGS: No fracture at either hand or wrist. 2-3 mm ulnar minus variance at both wrists. Mild swan-neck defor mity at the left fifth digit with moderate osteoarthritis at the left fifth proximal interphalangeal joint.. Moderate osteoarthritis with mild volar subluxation at the bilateral second metacarpophalange al joints. Additional polyarticular osteoarthritis at the bilateral hands and wrists, mild to moderat e at the right third metacarpophalangeal joint and mild at the bilateral distal radioulnar, triscaphe , first carpometacarpal, 50 metacarpophalangeal and many of the remaining interphalangeal joints. No erosions to suggest inflammatory arthritis. IMPRESSION: 1. Polyarticular osteoarthritis at the bilateral hands and wrists, moderate severity at the left fift h proximal interphalangeal and bilateral second metacarpophalangeal joints. Reviewed, dictated and finalized at location A. IMPRESSION: 1. Polyarticular osteoarthritis at the bilateral hands and wrists, moderate sev erity at the left fifth proximal interphalangeal and bilateral second metacarpo phalangeal joints.
== END ==
PROVIDERS: PCP Family Medicine; Visit Provider Nurse Practitioner Family
DX: M25.441 Effusion, right hand (principal); M25.442 Effusion, left hand; M19.041 Primary osteoarthritis, right hand; M19.042 Primary osteoarthritis, left hand; M19.031 Primary osteoarthritis, right wrist; M19.032 Primary osteoarthritis, left wrist
CPT/HCPCS: 73120

== ENCOUNTER 2023-10-23 07:22 | Outpatient (CLI) | payer MEDICARE, MEDICAID, SELFPAY ==
--- NOTE | ~2023-10-23 | NM_ITS ---
EXAMINATION: NM terrell stress w perfusion DATE: 10/23/2023 11:04 INDICATION: Other forms of dyspnea. TECHNIQUE: Rest images were obtained following intravenous administration of 10.2 mCi Tc99m tetrofosm in (Myoview). The patient was infused intravenously with Lexiscan (regadenoson). Then, 32 mCi Tc99m t etrofosmin (Myoview) was administered intravenously, and stress images were obtained. Data was recons tructed into short axis and horizontal and vertical long axis SPECT images. Gated SPECT images were a lso obtained. COMPARISON: Chest CT 10/03/2021 FINDINGS: There is increased activity below the diaphragm, which decreases sensitivity and specificit y in the inferior wall. There is no definite reversible or fixed perfusion abnormality to suggest isc hemia or infarction. There is no segmental wall motion abnormality. Left ventricular ejection fract ion measures >70%. IMPRESSION: 1. No definite ischemia or infarct. 2. Normal left ventricular ejection fraction measuring >70%. Reviewed, dictated and finalized at location A.
--- NOTE | 2023-10-23 07:28 | ECHO_ITS ---
Patient Info Name: Eulalio Arellano Age: 63 years : 1960 Gender: Male Ht: 68 in Wt: 175 lbs BSA: 1.97 m2 HR: 74 bpm BP: 143 / 104 mmHg Heart Rhythm: Sinus Rhythm Technical Quality: Good Exam Date: 10/23/2023 7:37 AM Exam Location: Echo Lab Patient Status: Outpatient Admit Date: 10/23/2023 Staff Ordering Physician: Deion Medellin MD Or Scrub Tech: Juliet Moreno RDCS Attending Provider: Deion Medellin MD Referring Physician: Lacie GERONIMO; Exam Type: CA echo doppler color flow Study Info Indications R06.09 - Other forms of dyspnea Complete two-dimensional, color flow and Doppler transthoracic echocardiogram is performed. Strain analysis performed. Summary 1. Complete two-dimensional, color flow and Doppler transthoracic echocardiogram is performed. 2. Left ventricular chamber dimension is normal. 3. Left ventricular systolic function is normal, estimated at 60-65%. 4. The left ventricular diastolic function is abnormal. 5. E/e' 10 is mildly elevated. 6. Global longitudinal strain is normal at -20.2%. 7. Left atrial chamber dimension is mildly enlarged. 8. There is trace mitral valve regurgitation. 9. There is trace tricuspid valve regurgitation. 10. No pulmonary hypertension, estimated pulmonary arterial systolic pressure is 26 mmHg. Left Ventricle E/e' 10 is mildly elevated. Global longitudinal strain is normal at -20.2%. Left ventricular chamber dimension is normal. Left ventricular systolic function is normal, estimated at 60-65%. The left ventricular diastolic function is abnormal. Right Ventricle Right ventricular systolic function is normal and with normal TAPSE 2.3 cm. Right ventricular chamber dimension is normal. Left Atria Left atrial chamber dimension is mildly enlarged. Right Atria Right atrial chamber dimension is normal. Aortic Valve The aortic valve is trileaflet. There is no aortic valve stenosis. There is no aortic valve regurgitation. Pulmonic Valve There is no pulmonic regurgitation. Mitral Valve There is no mitral valve stenosis. There is trace mitral valve regurgitation. Tricuspid Valve There is trace tricuspid valve regurgitation. No pulmonary hypertension, estimated pulmonary arterial systolic pressure is 26 mmHg. Pericardium/Pleural There is no pericardial effusion. Inferior Vena Cava Normal inferior vena cava with >50% collapse upon inspiration consistent with normal right atrial pressure, 5 mmHg. Aorta The aortic root size at the sinus of Valsalva is normal. Left Ventricular Outflow Tract Name Value Normal LVOT Doppler LVOT Peak Gradient 5 mmHg LVOT Mean Gradient 2 mmHg LVOT VTI 24 cm LVOT VTI/AV VTI Ratio 0.8 Pulmonic Valve Name Value Normal RVOT Doppler RVOT Peak Gradient 2 mmHg PV Doppler PV Peak Gradient 3 mmHg Mitral Valve
--- NOTE | 2023-10-23 07:56 | EST_ITS ---
Patient Info Name: Eulalio Arellano Age: 63 years : 1960 Gender: Male Ht: 68 in Wt: 175 lbs BSA: 1.97 m2 HR: 66 bpm BP: 126 / 62 mmHg Exam Date: 10/23/2023 9:13 AM Exam Location: Echo Lab Patient Status: Outpatient Admit Date: 10/23/2023 Staff Ordering Physician: Deion Medellin MD Attending Provider: Deion Medellin MD Exercise Technologist: Lenora Rodrigez CT Exercise Physician: Titi Costello DO Exam Type: CA stress terrell w NM Study Info Indications R06.09 - Other forms of dyspnea A regadenoson stress test was performed. Summary 1. 1. Negative lexiscan stress test for ischemic ST changes by ECG criteria. 2. 2. Stable hemodynamics throughout the test. 3. 3. Nuclear scan to follow and will be reported separately. Please correlate with it. 4. 4. Patient informed of the above results. Protocol: Lexiscan Stress ECG Details Stage: REST Duration (min): 1 min : 13 sec HR (bpm): 63 SBP (mmHg): 126 DBP (mmHg): 62 Stage: REST Duration (min): 7 min : 40 sec HR (bpm): 64 SBP (mmHg): 126 DBP (mmHg): 62 Stage: STAGE 1 Duration (min): 1 min : 0 sec HR (bpm): 66 SBP (mmHg): 144 DBP (mmHg): 78 Stage: RECOVERY Duration (min): 1 min : 0 sec HR (bpm): 79 SBP (mmHg): 144 DBP (mmHg): 78 Stage: RECOVERY Duration (min): 2 min : 0 sec HR (bpm): 74 SBP (mmHg): 144 DBP (mmHg): 78 Stage: RECOVERY Duration (min): 3 min : 0 sec HR (bpm): 78 SBP (mmHg): 134 DBP (mmHg): 89 Stage: RECOVERY Duration (min): 3 min : 20 sec HR (bpm): 77 SBP (mmHg): 134 DBP (mmHg): 89 Rest HR: 64 bpm Peak HR: 81 bpm Rest Sys BP: 126 mmHg Peak Sys BP: 144 mmHg Max Pred HR: 158 bpm % Max Pred HR: 51 % Target HR: 134 bpm Max RPP: 11,664 bpm*mmHg Termination Reason: Completed protocol Cardiac Symptoms: Shortness of breath Total Time: 1 min : 0 sec Rest Duarte BP: 62 mmHg Peak Duarte BP: 78 mmHg Total Dose: 0.4 mg Resting ECG Sinus rhythm, IRBBB. Stress ECG No ST changes. Arrhythmias None. Report Signatures
== END 2023-10-23 07:23 | disposition home or self-care (01) ==
LOC: ANHCARD 07:22
PROVIDERS: PCP Family Medicine; Visit Provider Family Medicine
DX: R06.09 Other forms of dyspnea (principal); R68.89 Other general symptoms and signs
CPT/HCPCS: 78452; 93017; 93306; A9502; J2785

== ENCOUNTER 2024-01-26 10:11 | Outpatient (CLI) | payer MEDICAID, SELFPAY ==
[2024-02-04 14:00] VITALS: BMI 26.2
--- NOTE | 2024-02-04 14:00 | P.SLEEP_ITS ---
Sleep Study Date of Study: 01/26/24 Ordering Provider: Deion Medellin MD Interpreting Physician: Jacquelin Otero DO Sleep Study Type: Polysomnogram Height: 1.74 m Weight: 79.379 kg Body Mass Index: 26.2 Neck Circumference (inches): 16.25 [place]: 6 Reason for Sleep Study Previously diagnosed sleep apnea in 2021 but couldn't afford CPAP therapy. Wants to be retested. Sleep History The patient is a 63-year-old male that had a sleep study ordered by his primary care physician for evaluation of sleep apnea. The patient denies awakening from sleep short of breath. He denies awakening at night with heartburn, belching or cough. He constantly snores and is occasionally loud enough that others complain. He denies having trouble sleeping when he has a cold. He denies waking up gasping for air throughout the night. He denies having breathing problems at night observed by himself or others. He denies sweating excessively at night. He denies having heart palpitations or irregular heartbeats during the night. He rarely falls asleep during the day but never while driving. He denies sleep paralysis, cataplexy and hypnagogic / hypnopompic hallucinations. He denies having trouble at school or work due to sleepiness. He denies feeling afraid of going to sleep. He occasionally has nightmares. He rarely remembers his dreams. He occasionally has thoughts racing through his mind. He denies fe eling sad or depressed. He rarely has anxiety. He constantly has muscular tension. He constantly notices parts of his body jerk. He denies kicking during the night. He denies having crawling and aching feelings in his legs but occasionally has leg pain during the night. He denies grinding his teeth during sleep but occasionally awakens with morning jaw pain. He is constantly bothered by pain during the day and frequently awakened by pain during the night. He denies waking up feeling stiff in the morning. He constantly wakes up with sore or achy muscles. He constantly wakes up with pain in his neck spine or joints. He goes to bed between midnight to 3:00 a.m. on both weekdays and weekends. It takes him 5-10 minutes to fall asleep. He wakes up once throughout the night to adjust his position and is able to fall back asleep within a few minutes. He wakes up between 7-830 a.m. on both weekdays and weekends. He typically gets 4- 6 hours of sleep per night. He does not stay in bed after waking up in the morning. He currently lives alone. He will occasionally drink a caffeinated beverage within 2 hours of bedtime. He denies engaging in physical exercise before bedtime. He will watch television before falling asleep. He denies taking naps in the afternoon or the evening. He consumes caffeinated beverages throughout the day. He smokes 1 pack of cigarettes every 2-4 days. He denies alcohol use. He does use cannabis. [facility] Past Medical History Medical History Abnormal chest x-ray Acne vulgaris Actinic keratosis Acute bronchitis Anxiety Asthma At high risk for falls Ataxia Back pain BMI 26.0-26.9,adult BMI 27.0-27.9,adult BMI 28.0-28.9,adult BMI 29.0-29.9,adult Chronic hip pain, bilateral Confusion COPD (chronic obstructive pulmonary disease) Decreased exercise tolerance Lexiscan stress test on 10/23/2023 revealed no evidence of ischemia or infarction on nuclear portion or EKG portion of the exam with ejection fraction greater than 70%. Echo on 10/23/2023 with ejection fraction 60-65% with trace mitral valve regurgitation and tricuspid valve regurgitation with diastolic dysfunction and no evidence of pulmonary hypertension. Dyspnea on exertion Encounter for prostate cancer screening PSA 2.46 on 07/12/2021. PSA 2.58 on 10/10/2023. Encounter for screening colonoscopy Refuses colonoscopy because of hemorrhoids. Excoriation of forearm Fatigue Thyroid function is normal with TSH 2.22 and free T4 of 1.0 on 07/12/2021. Folliculitis (~10/19/20) Gastro-esophageal reflux disease without esophagitis Hemorrhoids Impingement syndrome of right shoulder (~07/2022) X-ray of the right shoulder 08/02/2022 with mild osteoarthritis. Knee pain, left Low iron iron 58 with 18% saturation and ferritin 163 on 07/12/2021 with hemoglobin 14.0. Iron low at 42 with 12% saturation and ferritin 37 with hemoglobin 14.8 on 08/22/2021. Iron 45 with 15% saturation and ferritin 100 with hemoglobin 13.8 on 10/08/2023. Multiple wounds of skin GINNY (obstructive sleep apnea) (~2021) sleeps in recliner.Untreated. Cannot afford treatment. sleep study 09/18/2021 with AHI 6.4 with 86% saturation with CPAP Titration on 01/10/2022 with optimal pressure 15 cm of water pressure with 3 EPR with medium ResMed air Touch F20 nasal mask with heated humidity 02/17/2022. Overweight (BMI 25.0-29.9) Pain in finger of left hand Pain in finger of right hand Peptic ulcer disease Pneumonia (06/05/21) right upper lobe infiltrate 06/05/2021. Persistent nodular density right upper lobe on chest x-ray 07/12/2021. Renal insufficiency, mild (08/22/22) BUN 13, creatinine 1.58 with GFR 49 on 08/22/2022. BUN 22, creatinine 1.46 with GFR 54 on 10/08/2023. Skin ulceration Swelling of finger joint of right hand severe osteoarthritis of the hands on 10/22/2022 x-rays. Swelling of joint of left hand Tick bite Tobacco use disorder, continuous 1/2 of a pack daily Vitamin B12 deficiency anemia Vitamin B12 level normal at 470 with folic acid 11.2 and hemoglobin 14.0 on 07/12/2021. Level low at 248 with goal greater than 400 with hemoglobin 14.8 on 08/22/2022. Level low at 293 with hemoglobin 13.8 on 10/08/2023. Surgical History Surgical History History of back surgery Family History Family History Mother Patient's mother is , Onset Age: 76 Father Patient's father is , Onset Age: 79 Social History Social History Smoking packs per day: 0.5 Smoking cigarettes per day: 10.0 Smoking status: Current every day smoker Tobacco type: cigarettes Alcohol intake: never Substance use: never Lack of Transportation: YES Lack of Food: Never True Concerned About Future Housing: No Difficulty Paying Gas/Electric Bills: YES Difficulty Paying for Meds: No Currently Unemployed: No Education: Grade School Difficulty w/ Childcare or Family Care: No Living arrangements: alone Occupation/Education: unemployed Gender identity (if verbalized by the patient): Male Sexual Orientation (if Verbalized by the Patient): Straight or Heterosexual Medications Home Medications Medication Instructions Recorded Confirmed Type peak flow meter #1 ea 08/02/22 01/15/24 Rx cyanocobalamin (vitamin B-12) 1,000 mcg PO DAILY 09/20/22 01/15/24 History 1,000 mcg tablet ferrous sulfate 324 mg (65 mg 324 mg PO DAILY 09/20/22 01/15/24 History iron) tablet,delayed release cannabis BYMOUTH 11/19/22 01/15/24 History diclofenac sodium 1 % topical gel 2 g topical QID 11/19/22 01/15/24 History (Voltaren Arthritis Pain) atorvastatin 40 mg tablet 40 mg PO QHS #30 tabs 05/22/23 01/15/24 Rx omeprazole 40 mg capsule,delayed 40 mg PO DAILY #90 caps 05/22/23 01/15/24 Rx release buspirone 15 mg tablet 15 mg PO BID #60 tabs 07/05/23 01/15/24 Rx duloxetine 60 mg capsule,delayed 60 mg PO DAILY #30 caps 07/05/23 01/15/24 Rx release (Cymbalta) meloxicam 7.5 mg tablet 7.5 mg PO BID #60 tabs 08/05/23 01/15/24 Rx mupirocin 2 % topical ointment 1 applic topical BID #50 grams 10/10/23 01/15/24 Rx cyclobenzaprine 10 mg tablet 10 mg PO TID PRN muscle spasm #90 12/02/23 01/15/24 Rx tabs albuterol sulfate 90 mcg/actuation 2 inh inhalation Q4H PRN shortness 01/01/24 01/15/24 Rx aerosol inhaler of breath or wheezing #18 grams alprazolam 1 mg tablet (Xanax) 1 mg PO TID PRN anxiety #90 tabs 01/01/24 01/15/24 Rx hydrocodone 10 mg-acetaminophen 1 tablet PO Q6H PRN pain #120 tabs 01/14/24 01/15/24 Rx 325 mg tablet ascorbic acid (vitamin C) 1,000 mg 1 g PO BID 01/15/24 01/15/24 History capsule fluticasone fur. 200 mcg-umeclid 1 inh inhalation DAILY #60 ea 01/15/24 01/15/24 Rx 62.5 mcg-vilant 25 mcg inhalat.powder (Trelegy Ellipta) silver sulfadiazine 1 % topical 1 applic topical DAILY #400 grams 01/15/24 01/15/24 Rx cream (Silvadene) pregabalin 150 mg capsule (Lyrica) 150 mg PO BID #60 caps 02/03/24 Rx Sleep Procedure A full night polysomnogram using the [employer] multi-channel system recorded the standard physiologic parameters including EEG, EOG, submentalis EMG, anterior tibialis EMG, EKG, body position, nasal and oral airflow using na jenniffer pressure sensor and thermistor.? Respiratory parameters of chest and abdominal movements were recorded with Respiratory Inductance Plethysmography belts. Oxygen saturation was recorded by pulse oximetry. Video monitoring was also performed. Sleep stages, periodic limb movements, and EEG arousals were scored in 30 second epochs according to the criteria of the AASM Scoring Manual. The Apnea-Hypopnea Index was calculated using CMS guidelines for definition of hypopnea with 4% O2 desaturations while scoring respiratory events. Sleep Architecture The total recording time was 540.0 minutes.? The total sleep time was 496.5 minutes. Sleep latency was 1.6 minutes. REM latency was 327.5 minutes. Sleep efficiency was 91.9%. The patient had 34 awakenings for an awakening index of 4.1. Wake after sleep onset time was 42.0 minutes. The patient spent 33.0 minutes, 6.6% of total sleep time in Stage N1. The patient spent 445.0 minutes, 89.6% in Stage N2. The patient spent 0.0 minutes, 0.0% in Stage N3. The patient spent 18.5 minutes, 3.7% in Stage REM sleep. Respiratory Analysis The patient had 2 obstructive apneas and 2 central apneas for an overall Apnea Hypopnea Index of 0.5. The REM Apnea Hypopnea Index was 0. The NREM Apnea Hypopnea Index was 0.5. The patient had a Central Apnea Hypopnea Index of 0.2. There was no evidence of Dread-Gonzales Respirations. The patient's oxygen saturation remained between 84-85% for the first hour of the study despite the absence of respiratory events. He was started on 1 lpm of supplemental oxygen which increased his oxygen saturation to above 90%. Arousals There were 107 total arousals for an arousal index of 12.9. There were 95 spontaneous arousals for an index of 11.5. There were 0 arousals due to respiratory events for an index of 0. There were 4 arousals due to periodic limb movements for an index of 0.5.? There were 8 arousals due to isolated limb movements for an index of 1.0. Periodic Limb Movements The patient had 13 isolated limb movements with an index of 1.6. The patient had 9 periodic limb movements with an index of 1.1. Patient had a total of 22 limb movements with a total limb movement index of 2.7. Oximetry Data The patient had an average oxygen saturation of 92.1% in sleep with a minimum oxygen saturation of 82.0% and a maximum oxygen saturation of 99.0%. The patient had 5 oxygen desaturations that were 4% or greater resulting in an Oxygen Desaturation Index of 0.6.? The patient spent 64.2 minutes, 12% of total sleep time with an oxygen saturation below 88%. Snoring Profile Snoring was not present during this study. Cardiac Profile The EKG showed normal sinus rhythm. No arrhythmias or PACs/PVCs were seen. The patient had an average pulse rate of 61.1 bpm with a minimum pulse of rate of 53.0 bpm and a maximum pulse rate of 79.0 bpm.? EEG Profile No signs of seizure activity seen. Assessment and Plan Assessment and Plan (1) Nocturnal hypoxemia due to emphysema: Code(s): J43.9 - Emphysema, unspecified; G47.36 - Sleep related hypoventilation in conditions classified elsewhere Status: Acute Assessment and Plan: The patient had an overall AHI of 0.5 with desaturation down to 82%. Sleep- disordered breathing was not present but he did have nocturnal hypoxemia in the absence of respiratory events. The patient was started on 1 lpm of supplemental oxygen which brought his oxygen saturation above 90%. I recommend that the patient use 1 lpm of supplemental oxygen whenever he sleeps. I would also consider weaning the patient to the lowest possible dose or completely off alprazolam and hydrocodone. Data The data obtained during this sleep study is adequate for interpretation. Certification This sleep study has been reviewed by a board certified sleep medicine physician.
== END 2024-01-27 06:46 | disposition home or self-care (01) ==
LOC: ANHCSM 10:14
PROVIDERS: PCP Family Medicine; Visit Provider Family Medicine
DX: G47.33 Obstructive sleep apnea (adult) (pediatric) (principal); G47.36 Sleep related hypoventilation in conditions classified elsewhere; J43.9 Emphysema, unspecified; R06.83 Snoring; G47.10 Hypersomnia, unspecified; I10 Essential (primary) hypertension
CPT/HCPCS: 95810

== ENCOUNTER 2024-05-08 08:45 | Emergency (ER) | payer MEDICARE, MEDICAID, SELFPAY ==
[2024-05-08] VITALS (13 sets, daily range): BP systolic 128–178; BP diastolic 91–123; PULSE 68–82; RESP 11–18; TEMP 36.6; O2SAT 94–99
--- NOTE | ~2024-05-08 | XR_ITS ---
EXAMINATION: XR chest 2V DATE: 05/08/2024 10:03 INDICATION: Shortness of breath. TECHNIQUE: Frontal and lateral views of the chest were obtained. COMPARISON: Chest 2 views 07/12/2021, chest CT 10/03/2021 FINDINGS: There is mild scarring at right lung apex. There are lucencies in the lungs, consistent wit h emphysema. No pleural effusion or pneumothorax. The heart size is normal. IMPRESSION: 1. Mild scarring at right lung apex. 2. Emphysema. Reviewed, dictated and finalized at location A. [employer] [employer]
--- OUTSIDE RECORDS SUMMARY | 2024-05-08 09:01 | XMS_ITS | Patient Health Summary ---
Author Organization [facility] Address [address] [place] [address] Care Team Providers Care Lion Tamer Name Role Phone Unavailable Primary Care Provider Unavailabl e Note from [facility],non-owned Affiliates and Associated Physician Practices is amultiple site organization consisting of ambulatory clinics and hospital sitesin [place], [place] and [place]. This disclosure is being madepursuant to the Care Everywhere program and may not contain all information available regarding this patient. Last updated 17.[facility] [employer] Social History Tobacco Use Types Packs/Day Years Used Date Smoking Tobacco: Never Assessed Sex and Gender Information Value Date Recorded Sex Assigned at Not on file Gender Identity Not on file Sexual Orientation Not on file Procedures * DERMATOPATHOLOGY(Performed 07/03/2018) Results * DERMATOPATHOLOGY (07/03/2018 12:00 AM CDT) Case Report Dermatopathology Report Case: [id number] Authorizing Provider: Eden Arnett MD Collected: 07/03/2018 12:00 AM Pathologist: Cassidy Minor MD Received: 07/04/2018 11:23 AM Specimens: A) - Skin, right preauricular B) - Skin, right FA C) - Skin, right FA lateral 9 2:04 PM CDT DERMATOPATHOLOGY LABORATORY Final Diagnosis Specimen A. SKIN, right preauricular : ULCER WITH SUPERFICIAL DERMAL NECROSIS (L98.499) HYPERPLASTIC (HYPERTROPHIC) ACTINIC KERATOSIS, ERODED (L57.0) Specimen B. SKIN, right FA: ULCER WITH SUPERFICIAL DERMAL NECROSIS; NOT PRESENT AT SAMPLED MARGIN (L98.499) FOLLICULITIS, SUPPURATIVE; PRESENT AT MARGIN (L73.8) BENIGN VERRUCOUS KERATOSIS; PRESENT AT MARGIN (L82.1) Specimen C. SKIN, right FA lateral: PRURIGO NODULARIS (L28.1) WITH DERMAL FIBROSIS (L90.5) PRESENT AT MARGIN (see microscopic description and comment) 2:04 PM [facility] DERMATOPATHOLOGY LABORATORY Clinical History A: Eroded papule BCC, MM, PN. B-C: [place] scaly plaque, PN, VV, NMSC. 2:04 PM [facility] DERMATOPATHOLOGY LABORATORY Gross Description Specimen A: Received is one formalin filled container labeled with the patient's name and designated right preauricular . The specimen consists of a shave measuring [id number]. The margin is inked green. Jar 0. Specimen B: Received is one formalin filled container labeled with the patient's name and designated right FA. The specimen consists of a shave measuring [id number]. The margin is inked green. Jar 0. Specimen C: Received is one formalin filled container labeled with the patient's name and designated right FA lateral. The specimen consists of a shave measuring [id number]. The margin is inked green. Jar 0. 2:04 PM [facility] DERMATOPATHOLOGY LABORATORY Microscopic Description Specimen A. SKIN, right preauricular : There is an ulcer, beneath which there are vascular proliferation, fibroblasts, and an edematous stroma. There is hyperkeratosis alternating with parakeratosis. Bacteria are seen. There is epidermal hyperplasia with disorderly maturation of keratinocytes with nuclear pleomorphism confined to the lower half of the epidermis. Specimen B. SKIN, right FA: There is an ulcer, beneath which there are vascular proliferation, fibroblasts, and an edematous stroma. There is an overlying serum crust with bacteria. This lesion is not present at the sampled margin of the specimen. Sections also show rupture of the follicular infundibulum, with numerous neutrophils. This lesion is present at the margin of the specimen. There is also hyperkeratosis, papillomatosis, hypergranulosis, and acanthosis. These histological findings can be seen in a verruca vulgaris or a seborrheic keratosis. This lesion is present at the margin of the specimen. Specimen C. SKIN, right FA lateral: There is a dome-shaped portion of skin with psoriasiform epidermal hyperplasia, compact hyperkeratosis, and fibrosis of the papillary dermis associated with a superficial perivascular lymphohistiocytic infiltrate. There is focal dermal fibrosis. This lesion is present at the margin of the specimen. COMMENT: An underlying benign verrucous keratosis cannot be excluded. 9 2:04 PM CDT DERMATOPATHOLOGY LABORATORY Disclaimer An external and internal positive and negative controls are appropriate for the histochemical, immunohistochemical and immunofluorescence stain(s) in this case (if any), except where stated explicitly. The performance characteristics of the stain(s) cited in this report were developed and its performance characteristic determined by the Dermatopathology Laboratory at [facility], directed by Dr. Rashida Michael. These tests need not be, and therefore are not, approved by the [place] Food and Drug Administration. The tests are used for clinical purposes. Billing Codes Specimen Charges Stain Charges [id number] 1 1 1 9 2:04 PM CDT DERMATOPATHOLOGY LABORATORY Embedded Images 9 2:04 PM CDT DERMATOPATHOLOGY LABORATORY Pathology/Cytology TISSUE SPECIMEN FROM SKIN / Unknown 07/03/2018 07/04/2018 11:23 AM CDT Miscellaneous samples (specimen) TISSUE SPECIMEN FROM SKIN / Unknown 07/03/2018 07/04/2018 11:23 AM CDT Miscellaneous samples (specimen) TISSUE SPECIMEN FROM SKIN / Unknown 07/03/2018 07/04/2018 11:23 AM CDT Eden Arnett MD LAB - PATHOLOGY/CYTO LOGY ORDERABLES DERMATOPATHOLOGY LABORATORY [facility] - Department of Dermatology [address] [place] [address], [address] [place] [address], [facility] [phone]
--- OUTSIDE RECORDS SUMMARY | 2024-05-08 09:01 | XMS_ITS | Encounter Summary ---
Author Organization [facility] Address [address] [place] [address] Care Team Providers Care Therapy Manager Name Role Phone Unavailable Primary Care Provider Unavailabl e Encounter Details Date Type Department Care Team (Late st Contact Info) Description 07/04/2018 Lab Requisition [facility] [address] [place] [address] Eden Arnett MD [address] [place] [address] Social History Tobacco Use Types Packs/Day Years Used Date Smoking Tobacco: Never Assessed Sex and Gender Information Value Date Recorded Sex Assigned at Not on file Gender Identity Not on file Sexual Orientation Not on file documented as of this encounter Plan of Treatment Not on file documented as of this encounter Procedures Procedure Name Priority Date/Time Associated Diagnosis Comments DERMATOPATHOLOGY Routine 07/03/2018 12:0 0 AM CDT documented in this encounter Results * DERMATOPATHOLOGY (07/03/2018 12:00 AM CDT) Case Report Dermatopathology Report Case: [id number] Authorizing Provider: Eden Arnett MD Collected: 07/03/2018 [...] (see microscopic description and comment) 2:[address] [facility] DERMATOPATHOLOGY LABORATORY Clinical History A: Eroded papule BCC, MM, PN. B-C: [place] scaly plaque, PN, VV, NMSC. 2:[address] [facility] DERMATOPATHOLOGY LABORATORY Gross Description Specimen A: Received is one formalin filled container labeled with the patient's name and designated right preauricular . The specimen consists of a shave measuring [id number]. The margin is inked green. Jar 0. Specimen B: Received is one formalin filled container labeled with the patient's name and designated right FA. The specimen consists of a shave measuring [id number]. The margin is inked green. Jar 0. Specimen C: Received is one formalin filled container labeled with the patient's name and designated right FA lateral. The specimen consists of a shave measuring [id number]. The margin is inked green. Jar 0. 2:[address] [facility] DERMATOPATHOLOGY LABORATORY Microscopic Description Specimen A. SKIN, [...] characteristic determined by the Dermatopathology Laboratory at [facility], directed by Dr. Rashida Michael. These tests need not be, and therefore are not, approved by the [place] Food and Drug Administration. The tests are used for clinical purposes. Billing Codes Specimen Charges Stain Charges 75890 [id number] [id number] 1 1 1 9 2:04 PM CDT [...] LAB - PATHOLOGY/CYTO LOGY ORDERABLES DERMATOPATHOLOGY LABORATORY [facility] - Department of Dermatology [address] [place], [place] [id number] [place] [address] documented in this encounter Visit Diagnoses Not on filedocumented in this encounter
--- OUTSIDE RECORDS SUMMARY | 2024-05-08 09:01 | XMS_ITS | CONTINUITY OF CARE DOCUMENT ---
Author Name emir field Address Unknown Organization [facility] Address [address] [place] [address] Phone [phone] Care Team Providers Care Independent Jeweler Name Role Phone Thaddeus MILLS, Gauri Unavailable INSURANCE PROVIDERS Payer name Policy type / Coverage type White red republican [employer] Medicaid 1 [id number] [place] [employer] Medicare [id number]
--- OUTSIDE RECORDS SUMMARY | 2024-05-08 09:01 | XMS_ITS | Referral Summary ---
Author Organization [facility] Address [address] [place] [address] Care Team Providers Care Directory Carrier Name Role Phone Unavailable Primary Care Provider Unavailabl e Source Comments [facility],non-owned Affiliates and Associated Physician Practices is amultiple site organization consisting of ambulatory clinics and hospital sitesin [place], [place], [place] and [place]. This disclosure is being madepursuant to the Care Everywhere program and may not contain all information available regarding this patient. Last updated 17.[facility] [employer] Social History Tobacco Use Types Packs/Day Years Used Date Smoking Tobacco: Never Assessed Sex and Gender Information Value Date Recorded Sex Assigned at Not on file Gender Identity Not on file Sexual Orientation Not on file Plan of Treatment Not on file
--- OUTSIDE RECORDS SUMMARY | 2024-05-08 09:01 | XMS_ITS | Continuity of Care Document ---
Author Organization [facility] Address [address] [place] [address] [address] [place] [address] Phone Care Team Providers Care Driver Merchandiser Name Role Phone Hairston OD, Oneil Unavailable Unavailable Procedures Procedure Date Eye Exam & Treatment Refraction Advance Directives Directive Yes / No Effective Date File Name No Information Encounters Encounter Description Practice Location Reason(s) For Visit Diagnoses Date Provider Providers Copied on Encounter [facility], [address] [place] [address] [address], [place], [place], [id number], [place] tel:[phone] [facility] No Information 1-201 0 Hairston OD Oneil. [address] , [address], [place], [address], [place]. tel:[phone] Family History Family Member Type Diagnosis Age At Onset No Information Payers Payer name Insurance type Covered libertarian ID Authoriza tion(s) Medicare [facility] [id number] Medicaid [facility] [id number] Social History Type Description Quantity Date Captured Comments Sex Female Smoking Status No Information Chief Complaint And Reason For Visit No Information Reason For Referral Reason For Referral No Information History Of Present Illness Encounter Date Complaint History Of Prese nt Illness No Information Functional Status Date Functional Assessmen t No Information Instructions Date Instruction Additional Infor mation No Information Assessments Type Assessment Date No Information Patient Care Teams Name Effective Dates (start - stop) Status Members No Information
--- OUTSIDE RECORDS SUMMARY | 2024-05-08 09:01 | XMS_ITS | Clinical Summary ---
Author Organization [facility] Address [address] [place] [address] Care Team Providers Care Cigar Packer Name Role Phone Unavailable Primary Care Provider Unavailabl e Source Comments [facility],non-owned Affiliates and Associated Physician Practices is amultiple site organization consisting of ambulatory clinics and hospital sitesin [place], [place], [place] and [place]. This disclosure is being madepursuant to the Care Everywhere program and may not contain all information available regarding this patient. Last updated 17.[facility] Social History Tobacco Use Types Packs/Day Years Used Date Smoking Tobacco: Never Assessed Sex and Gender Information Value Date Recorded Sex Assigned at Not on file Gender Identity Not on file Sexual Orientation Not on file Plan of Treatment Health Maintenance Due Date Last Done Comments COLOGUARD (AGES 45-75) - COL ON CA SCREENING 1961 COLON MONITORING 1961 COLONOSCOPY - COLON CA SCREENING 1961 CT COLONOGRAPHY - COLON CA SCREENING 1961 Colorectal Cancer Screening 1961 FIT - COLON CA SCREENING 1961 FLEX SIG - COLON CA SCREENING 1961 LIPID TESTING 1961 MEDICARE AWV 12 MONTHS 1961 HIV SCREENING 1976 HEPATITIS C SCREENING 05/26/1979 DTAP/TDAP/TD VACCINES (1 - Tdap) 1980 PNEUMOCOCCAL VACCINE 50+ (1 of 1 - PCV) 05/31/2011 ZOSTER VACCINE (1 of 2) 05/31/2011 COVID-19 VACCINE ( - 2023-2 5 season) 2023 INFLUENZA VACCINE (#1) 2023 DEPRESSION SCREENING 03/04/2024 Respiratory Syncytial Virus (RSV) Vaccine Pt: or over 60 yrs (1 - 1-dose 75+ series) 2036 HEPATITIS B VACCINE Aged Out No longe r eligible based on patient's age to complete this topic HIB VACCINE Aged Out No longer eligi ble based on patient's age to complete this topic HPV VACCINE Aged Out No longer eligi ble based on patient's age to complete this topic MENINGOCOCCAL (Group B) VACCINE Aged Out No longer eligible based on patient's age to complete this topic MENINGOCOCCAL VACCINE Aged Out No guera kimberly eligible based on patient's age to complete this topic PNEUMOCOCCAL VACCINE Aged Out No long er eligible based on patient's age to complete this topic
--- OUTSIDE RECORDS SUMMARY | 2024-05-08 09:45 | XMS_ITS | Patient Health Summary ---
Author Organization [facility] Address [address] [place] [address] Care Team Providers Care Mechanical Press Operator Name Role Phone Unavailable Primary Care Provider Unavailabl e Note from [facility],non-owned Affiliates and Associated Physician Practices is amultiple site organization consisting of ambulatory clinics and hospital sitesin [place], [place], [place] and [place]. This disclosure is being madepursuant to the Care Everywhere program and may not contain all information available regarding this patient. Last updated 17.[facility] [employer] Social History Tobacco Use Types Packs/Day Years Used Date Smoking Tobacco: Never Assessed Sex and Gender Information Value Date Recorded Sex Assigned at Not on file Gender Identity Not on file Sexual Orientation Not on file Procedures * DERMATOPATHOLOGY(Performed 07/03/2018) Results * DERMATOPATHOLOGY (07/03/2018 12:00 AM CDT) Case Report Dermatopathology Report Case: [id number] Authorizing Provider: Eden Arnett MD Collected: 07/03/2018 [...] (see microscopic description and comment) 2:04 PM [facility] Clinical History A: Eroded papule BCC, MM, PN. B-C: Leakey scaly plaque, PN, VV, NMSC. 2:04 PM [facility] Gross Description Specimen A: Received is one formalin filled container labeled with the patient's name and designated right preauricular . The specimen consists of a shave measuring [id number]. The margin is inked green. Jar 0. Specimen B: Received is one formalin filled container labeled with the patient's name and designated right FA. The specimen consists of a shave measuring [id number]. The margin is inked green. Jar 0. Specimen C: Received is one formalin filled container labeled with the patient's name and designated right FA lateral. The specimen consists of a shave measuring 30r5p3kl. The margin is inked green. Jar 0. 2:04 PM [facility] Microscopic Description Specimen A. SKIN, [...] characteristic determined by the Dermatopathology Laboratory at [facility], directed by Dr. Rashida Michael. These tests need not be, and therefore are not, approved by the [place] Food and Drug Administration. The tests are used for clinical purposes. Billing Codes Specimen Charges Stain Charges 36846 95520 40073 1 1 1 9 2:04 PM CDT [...] DERMATOPATHOLOGY LABORATORY [facility] - Department of Dermatology [address] [place] [address], [address]th [place] [address], [facility] [phone]
--- OUTSIDE RECORDS SUMMARY | 2024-05-08 09:45 | XMS_ITS | Continuity of Care Document ---
Author Organization [facility] Address [address] [place] [address] [address] [place] [address] Phone Care Team Providers Care Metal Spinner Name Role Phone Hairston OD, Oneil Unavailable Unavailable Procedures Procedure Date Eye Exam & Treatment Refraction Advance Directives Directive Yes / No Effective Date File Name No Information Encounters Encounter Description Practice Location Reason(s) For Visit Diagnoses Date Provider Providers Copied on Encounter [facility], [address] [place] [address] [address], [place], [place], [id number], [place] tel:[phone] [facility] No Information 1-201 0 Hairston OD Oneil. [address] , [address], [place], [address], [place]. tel:[phone] Family History Family Member Type Diagnosis Age At Onset No Information Payers Payer name Insurance type Covered green party ID Authoriza tion(s) Medicare [facility] [id number] Medicaid [facility] [id number] Social History Type Description Quantity Date Captured [...]
--- OUTSIDE RECORDS SUMMARY | 2024-05-08 09:45 | XMS_ITS | CONTINUITY OF CARE DOCUMENT ---
Author Name emir field Address Unknown Organization [facility] Address [address] [place] [address] Phone [phone] Care Team Providers Care Inspector Balance Bridge Name Role Phone Thaddeus MILLS, Gauri Unavailable INSURANCE PROVIDERS Payer name Policy type / Coverage type [place] red constitution party ID [facility] Medicaid 1 [id number] [place] [employer] Medicare [id number]
--- OUTSIDE RECORDS SUMMARY | 2024-05-08 09:45 | XMS_ITS | Encounter Summary ---
Author Organization [facility] Address [address] [place] [address] Care Team Providers Care Building Performance Specialist Name Role Phone Unavailable Primary Care Provider Unavailabl e Encounter Details Date Type Department Care Team (Late st Contact Info) Description 07/04/2018 Lab Requisition [facility] [address] [place] [address] Eden Arnett MD [address] [place] [address] Social History Tobacco Use Types Packs/Day Years [...] AM CDT) Case Report Dermatopathology Report Case: [id number] Authorizing Provider: Eden Arnett MD Collected: 07/03/2018 [...] microscopic description and comment) 2:04 PM [facility] Clinical History A: Eroded papule BCC, MM, PN. B-C: Aldie scaly plaque, PN, VV, NMSC. 2:04 PM [facility] Gross Description Specimen A: Received is one formalin filled container labeled with the patient's name and designated right preauricular . The specimen consists of a shave measuring [id number]. The margin is inked green. Jar 0. Specimen B: Received is one formalin filled container labeled with the patient's name and designated right FA. The specimen consists of a shave measuring [id number]. The margin is inked green. Jar 0. Specimen C: Received is one formalin filled container labeled with the patient's name and designated right FA lateral. The specimen consists of a shave measuring [id number]. The margin is inked green. Jar 0. 2:04 PM [facility] Microscopic Description Specimen A. SKIN, [...] by the Dermatopathology Laboratory at [facility], directed by Dr. Rashida Michael. These tests need not be, and therefore are not, approved by the [place] Food and Drug Administration. The tests are used for clinical purposes. Billing Codes Specimen Charges Stain Charges 89990 [id number] 67137 1 1 1 9 2:04 PM CDT [...] LAB - PATHOLOGY/CYTO LOGY ORDERABLES DERMATOPATHOLOGY LABORATORY [facility] - Department of Dermatology [address] Lab [address] [place], [place] [address] [place] [address] documented in this encounter Visit Diagnoses Not on filedocumented in this encounter
--- OUTSIDE RECORDS SUMMARY | 2024-05-08 09:45 | XMS_ITS | Clinical Summary ---
Author Organization [facility] Address [address] [place] [address] Care Team Providers Care Data Capture Clerk Name Role Phone Unavailable Primary Care Provider Unavailabl e Source Comments [facility],non-owned Affiliates and Associated Physician Practices is amultiple site organization consisting of ambulatory clinics and hospital sitesin [place], [place] and [place]. This disclosure is being madepursuant to the Care Everywhere program and may not contain all information available regarding this patient. Last updated 17.[facility] [employer] Social History Tobacco Use Types Packs/Day Years [...]
--- OUTSIDE RECORDS SUMMARY | 2024-05-08 09:45 | XMS_ITS | Referral Summary ---
Author Organization [facility] Address [address] [place] [address] Care Team Providers Care Mover Name Role Phone Unavailable Primary Care Provider Unavailabl e Source Comments [facility],non-owned Affiliates and Associated Physician Practices is amultiple site organization consisting of ambulatory clinics and hospital sitesin [place], [place], [place] and [place]. This disclosure is being madepursuant to the Care Everywhere program and may not contain all information available regarding this patient. Last updated 17.[facility] [employer] Social History Tobacco Use Types Packs/Day Years Used Date Smoking Tobacco: Never Assessed Sex and Gender Information Value Date Recorded Sex Assigned at Not on file Gender Identity Not on file Sexual Orientation Not on file Plan of Treatment Not on file
--- NOTE | 2024-05-08 09:48 | ECG_ITS ---
Test Date: 2024-05-08 10:18:12 Measurements Intervals [place] Rate: 74 P: 68 VT: 173 QRS: 18 QRSD: 87 T: 54 QT: 362 QTc: 402 Interpretive Statements SINUS RHYTHM No previous ECG available for comparison Electronically Signed On 05-08-2024 16:33:54 HOUSEKEEPER CAREGIVER by Felicia Francis M.D.
--- NOTE | 2024-05-08 09:53 | ED_ITS ---
HPI - Recheck/Abnormal Lab/Rx General Chief Complaint: Recheck/Abnormal Lab/Rx Stated Complaint: elevated BP Time Seen by Provider: 05/08/24 08:53 History of Present Illness HPI narrative: Patient is a 64-year-old male who presents to the ER with concerns of an elevated blood pressure. He reports his BP reading this morning was 200/120. Patient called his primary care provider who told him he should go to the ER for evaluation. He reports he is supposed to wear a ?nasal cannula for oxygen at night but he takes it off in his sleep. Patient reports this morning he woke ?dizzy, dazed and confused without his oxygen. He reports he has a history of COPD and smokes approximately 1 pack every 3 days. Patient reports if he had not been told to come into the ER then he would not have because he was not having symptoms. He denies chest pain, increased shortness of breath, recent fevers, recent falls, recent head injuries. Related Data Home Medications ?Medication ?Instructions ?Recorded ?Confirmed ?Last Taken ?Type cyanocobalamin (vitamin B-12) 1,000 mcg PO DAILY 09/20/22 04/22/24 Unknown History 1,000 mcg tablet ferrous sulfate 324 mg (65 mg 324 mg PO DAILY 09/20/22 04/22/24 Unknown History iron) tablet,delayed release cannabis BYMOUTH 11/19/22 04/22/24 Unknown History diclofenac sodium 1 % topical gel 2 g topical QID 11/19/22 04/22/24 Unknown History (Voltaren Arthritis Pain) ascorbic acid (vitamin C) 1,000 mg 1 g PO BID 01/15/24 04/22/24 Unknown History capsule Allergies Allergy/AdvReac Type Severity Reaction Status Date / Time No Known Allergies Allergy Verified 05/08/24 08:57 Review of Systems 2 Review of Systems: All systems reviewed & are unremarkable except as noted in HPI and below PMFSH Past Medical History Medical History GINNY (obstructive sleep apnea) (~2021) sleeps in recliner.Untreated. Cannot afford treatment. sleep study 09/18/2021 with AHI 6.4 with 86% saturation with CPAP Titration on 01/10/2022 with optimal pressure 15 cm of water pressure with 3 EPR with medium ResMed air Touch F20 nasal mask with heated humidity 02/17/2022. No evidence of sleep apnea on 01/26/2024. Multiple wounds of skin BMI 26.0-26.9,adult Dyspnea on exertion Decreased exercise tolerance Lexiscan stress test on 10/23/2023 revealed no evidence of ischemia or infarction on nuclear portion or EKG portion of the exam with ejection fraction greater than 70%. Echo on 10/23/2023 with ejection fraction 60-65% with trace mitral valve regurgitation and tricuspid valve regurgitation with diastolic dysfunction and no evidence of pulmonary hypertension. Swelling of finger joint of right hand severe osteoarthritis of the hands on 10/22/2022 x-rays. Pain in finger of right hand Swelling of joint of left hand Pain in finger of left hand Renal insufficiency, mild (08/22/22) BUN 13, creatinine 1.58 with GFR 49 on 08/22/2022. BUN 22, creatinine 1.46 with GFR 54 on 10/08/2023. BUN 29, creatinine 1.27 with GFR 64 on 04/20/2024. Excoriation of forearm Impingement syndrome of right shoulder (~07/2022) X-ray of the right shoulder 08/02/2022 with mild osteoarthritis. Low iron iron 58 with 18% saturation and ferritin 163 on 07/12/2021 with hemoglobin 14.0. Iron low at 42 with 12% saturation and ferritin 37 with hemoglobin 14.8 on 08/22/2021. Iron 45 with 15% saturation and ferritin 100 with hemoglobin 13.8 on 10/08/2023. Iron 52 with 15% saturation and ferritin 31 on 04/20/2024. Encounter for prostate cancer screening PSA 2.46 on 07/12/2021. PSA 2.58 on 10/10/2023. BMI 29.0-29.9,adult At high risk for falls Pneumonia (06/05/21) right upper lobe infiltrate 06/05/2021. Persistent nodular density right upper lobe on chest x-ray 07/12/2021. Overweight (BMI 25.0-29.9) Chronic hip pain, bilateral Knee pain, left Back pain Anxiety Asthma BMI 27.0-27.9,adult Skin ulceration Folliculitis (~10/19/20) BMI 28.0-28.9,adult Tobacco use disorder, continuous 1/2 of a pack daily COPD (chronic obstructive pulmonary disease) Abnormal chest x-ray Ataxia Confusion Hemorrhoids Encounter for screening colonoscopy Refuses colonoscopy because of hemorrhoids. Gastro-esophageal reflux disease without esophagitis Peptic ulcer disease Vitamin B12 deficiency anemia Vitamin B12 level normal at 470 with folic acid 11.2 and hemoglobin 14.0 on 07/12/2021. Level low at 248 with goal greater than 400 with hemoglobin 14.8 on 08/22/2022. Level low at 293 with hemoglobin 13.8 on 10/08/2023. Level low at 220 on 04/20/2024. Fatigue Thyroid function is normal with TSH 2.22 and free T4 of 1.0 on 07/12/2021. Tick bite Acute bronchitis Actinic keratosis Acne vulgaris Surgical History Surgical History History of back surgery Family History Family History Mother Patient's mother is , Onset Age: 76 Father Patient's father is , Onset Age: 79 Social History Social History Smoking packs per day: 0.5 Smoking cigarettes per day: 10.0 Smoking status: Current every day smoker Tobacco type: cigarettes Alcohol intake: never Substance use: never Lack of Transportation: YES Lack of Food: Never True Concerned About Future Housing: No Difficulty Paying Gas/Electric Bills: YES Difficulty Paying for Meds: No Currently Unemployed: No Education: Grade School Difficulty w/ Childcare or Family Care: No Living arrangements: alone Occupation/Education: unemployed Gender identity (if verbalized by the patient): Male Sexual Orientation (if Verbalized by the Patient): Straight or Heterosexual Exam 2 Narrative: GENERAL: Well appearing, well-nourished, non-toxic, in no acute distress. HEAD: Normocephalic, atraumatic. NECK: Supple. No adenopathy, no masses. RESPIRATORY: Airway patent, respirations mildly labored at baseline d/t COPD. Mild wheezing to auscultation bilaterally, no rales, rhonchi. CARDIOVASCULAR: Regular rate and rhythm without murmurs, rubs, or gallops. Peripheral pulses 2+ and equal bilaterally. ABDOMINAL: Soft, nontender, nondistended, no hepatosplenomegaly. Normoactive BS. MUSCULOSKELETAL: Moves all extremities. Strength/ROM intact without gross deformities. SKIN: Warm, dry, normal color. No rashes. NEURO: A&O X3. Speech clear. Cranial nerves II-XII grossly intact. Steady gait. No ataxic movements. PSYCHIATRIC: Appropriate mood and affect. Normal interaction. Course Vital Signs Vital signs: Vital Signs Temperature 36.6 C 05/08/24 08:49 Pulse Rate 82 05/08/24 08:49 Respiratory Rate 18 05/08/24 08:49 Blood Pressure 153/123 H 05/08/24 08:49 Pulse Oximetry 98 05/08/24 08:49 Oxygen Delivery Room Air 05/08/24 08:49 Temperature 36.6 C 05/08/24 08:49 Pulse Rate 70 05/08/24 10:09 Respiratory Rate 16 05/08/24 10:09 Blood Pressure 160/92 H 05/08/24 09:45 Pulse Oximetry 95 05/08/24 09:45 Oxygen Delivery Room Air 05/08/24 08:49 MDM - Recheck/Abnormal Lab/Rx MDM Narrative Medical decision making narrative: Patient is a 64-year-old male who presents to the ER with concerns of an elevated blood pressure. He reports his BP reading this morning was 200/120. Patient called his primary care provider who told him he should go to the ER for evaluation. He reports he is supposed to wear a ?nasal cannula for oxygen at night but he takes it off in his sleep. Patient reports this morning he woke ?dizzy, dazed and confused without his oxygen. He reports he has a history of COPD and smokes approximately 1 pack every 3 days. Patient reports if he had not been told to come into the ER then he would not have because he was not having symptoms. He denies chest pain, increased shortness of breath, recent fevers, recent falls, recent head injuries. Labs Ordered: CBC, CMP, BNP, INR, APTT Imaging Ordered: Chest x-ray Medications Ordered: 1 L normal saline IV bolus, DuoNeb, Decadron Results: Pt's chest x-ray indicates There is mild scarring at right lung apex. There are lucencies in the lungs, consistent with emphysema. No pleural effusion or pneumothorax. The heart size is normal. Diagnosis: Primary hypertension, asymptomatic hypertension Patient Education/Shared MDM: Results shared with patient. He endorses improvement of shortness of breath following steroid administration. Patient strongly advised to maintain hydration status upon discharge and follow-up with his PCP as soon as possible. He will not be discharged home with any new medications. Strict return precautions provided. Patient verbalized understanding is in agreement with plan. Vital signs stable at time of discharge. All questions answered. Differential Diagnosis Differential diagnosis: Likely other (hypertension (chronic), chronic shortness of breath) Lab Data Attestation: I reviewed the patient's lab results. 05/08/24 10:19 05/08/24 10:19 Labs: Lab Results 05/08/24 Range/Units 10:19 WBC 8.6 (4.5-10.0) K/mm3 RBC 4.53 L (4.6-6.20) M/mm3 Hgb 13.9 L (14.0-18.0) g/dL Hct 43.2 (42.0-52.0) % MCV 95.4 (80-100) fl MCH 30.7 (26-34) pg MCHC 32.2 (32-36) g/dl RDW 13.3 (11.5-14.5) % Plt Count 137 L D (150-375) k/mm3 MPV 13.1 H (7.4-10.4) fl Immature Gran % (Auto) 0.7 H (0-0.5) % Neut % (Auto) 67.4 (45.5-73.1) % Lymph % (Auto) 22.8 (18.3-44.2) % [place] % (Auto) 6.3 (2.6-8.5) % Eos % (Auto) 2.2 (0-4.4) % Baso % (Auto) 0.6 (0.2-1.2) % Lymph # (Auto) 1.97 (0.9-3.2) K/mm3 [place] # (Auto) 0.5 (0.1-0.6) K/mm3 Eos # (Auto) 0.2 (0-0.3) K/mm3 Baso # (Auto) 0.1 (0.0-0.1) K/mm3 Abs Immat Gran (auto) 0.06 H (0.00-0.031) K/mm3 Absolute Neuts (auto) 5.8 (1.3-6.7) K/mm3 Absolute Nucleated RBC 0.000 (0.0-0.012) K/mm3 Nucleated RBC % 0.0 (0.0-0.2) % % Immature Plt Fraction 18.2 H (0.9-11.2) % PT 12.2 (11.1-14.7) Seconds INR 0.9 APTT 27.8 (22.3-36.8) Seconds Sodium 138 (137-145) mmol/L Potassium 4.9 (3.4-5.0) mmol/L Chloride 104 (98-107) mmol/L Carbon Dioxide 30 (22-30) mmol/L Anion Gap 4 (4-12) mmol/L BUN 13 D (9-20) mg/dL Creatinine 1.13 (0.7-1.3) mg/dL Estim Creat Clear Calc 58 ml/min Estimated GFR > 60 (59 - ) Glucose 113 H (65-110) mg/dL Calcium 8.7 (8.4-10.2) mg/dL Total Bilirubin 0.4 (0.2-1.3) mg/dL AST 21 (17-59) U/L ALT 10 (6-50) U/L Alkaline Phosphatase 103 (38-126) U/L NT-Pro-B Natriuret Pep 164 H (19.9-100) pg/mL Total Protein 7.0 (6.3-8.2) g/dL Albumin 3.9 (3.5-5.1) g/dL Imaging Data Attestation: I personally reviewed and interpreted this imaging study as follows: Radiologist's impression: Impressions Chest X-Ray 05/08/24 10:03 IMPRESSION: 1. Mild scarring at right lung apex. 2. Emphysema. Discharge Plan Discharge Clinical Impression: Tobacco use disorder, continuous, Essential (primary) hypertension COPD (chronic obstructive pulmonary disease) Qualifiers: COPD type: unspecified COPD Qualified Code(s): J44.9 - Chronic obstructive pulmonary disease, unspecified Patient Disposition: Home, Self-Care Condition: Stable Instructions: Antibiotic Form Additional Instructions: Please return to the ER with an worsening symptoms. Follow-up with primary care provider as soon as possible. Take all regularly scheduled medications as prescribed. Please keep a blood pressure log for your primary care provider. Patient Language: Lao Prescriptions: No Action ascorbic acid (vitamin C) 1,000 mg capsule 1 g PO BID diclofenac sodium [Voltaren Arthritis Pain] 1 % gel 2 g topical QID Patient Comments: sample given to patient 11/19/2022 Rx Instructions: apply to single elbow, wrist or hand; for hand includes palm/fingers/back of hand cannabis BYMOUTH Patient Comments: smokes cannabis (DME) peak flow meter Device See Rx Instructions .Route Qty: 1 0RF Rx Instructions: used daily to monitor COPD mupirocin 2 % ointment 1 applic topical BID Qty: 50 3RF Rx Instructions: apply to open wounds twice daily until healed pregabalin [Lyrica] 150 mg capsule 150 mg PO BID Qty: 60 5RF irbesartan 75 mg tablet 75 mg PO DAILY Qty: 30 11RF atorvastatin 40 mg tablet 40 mg PO QHS Qty: 30 11RF hydrocodone-acetaminophen 10-325 mg tablet 1 tablet PO Q6H PRN (Reason: pain) Qty: 120 0RF Rx Instructions: Use the hydrocodone for less severe pain in the oxycodone for more severe pain but not at the same time ferrous sulfate 324 mg (65 mg iron) tablet,delayed release (DR/EC) 324 mg PO DAILY cyanocobalamin (vitamin B-12) 1,000 mcg tablet 1,000 mcg PO DAILY silver sulfadiazine [Silvadene] 1 % cream 1 applic topical DAILY Qty: 400 5RF Rx Instructions: apply a 1.5 mm thickness to wounds until healed albuterol sulfate 90 mcg/actuation HFA aerosol inhaler 2 inh inhalation Q4H PRN (Reason: shortness of breath or wheezing) Qty: 18 3RF alprazolam [Xanax] 1 mg tablet 1 mg PO TID PRN (Reason: anxiety) Qty: 90 5RF buspirone 15 mg tablet 15 mg PO BID Qty: 180 3RF cyclobenzaprine 10 mg tablet 10 mg PO TID PRN (Reason: muscle spasm) Qty: 90 5RF duloxetine [Cymbalta] 60 mg capsule,delayed release(DR/EC) 60 mg PO DAILY Qty: 90 3RF meloxicam 7.5 mg tablet 7.5 mg PO BID Qty: 180 3RF omeprazole 40 mg capsule,delayed release(DR/EC) 40 mg PO DAILY Qty: 90 3RF Trelegy Ellipta 200-62.5-25 mcg blister with device 1 inh inhalation DAILY Qty: 60 11RF Follow-up/Referrals: Deion Medellin MD [Primary Care Provider] - Time of Disposition: 11:21
[2024-05-08] MEDS: IPRATROPIUM 0.5 MG/ALBUTEROL SULFATE 2.5 MG AMPUL.NEB 3 ML INHALATION (10:09)
[2024-05-08] MEDS: SODIUM CHLORIDE 0.9% IV 1,000 ML 999 ML IV CONT (10:16)
[2024-05-08] MEDS: dexAMETHasone SOD PHOS INJ 10 MG/ML 1 ML VIAL IV PUSH (10:17)
[2024-05-08 10:30] LABS: Basophils Absolute Auto 0.1 K/mm3 (0.0-0.1); Basophils Percent Auto 0.6 % (0.2-1.2); Eosinophils Absolute Auto 0.2 K/mm3 (0-0.3); Eosinophils Percent Auto 2.2 % (0-4.4); Hematocrit 43.2 % (42.0-52.0); Hemoglobin 13.9 g/dL (14.0-18.0); Immature Granulocyte Absolute 0.06 K/mm3 (0.00-0.031); Immature Granulocyte Percent A 0.7 % (0-0.5); Immature Platelet Fraction Pct 18.2 % (0.9-11.2); Lymphocytes Absolute Auto 1.97 K/mm3 (0.9-3.2); Lymphocytes Percent Auto 22.8 % (18.3-44.2); Mean Corpuscular HGB Conc 32.2 g/dl (32-36); Mean Corpuscular Hemoglobin 30.7 pg (26-34); Mean Corpuscular Volume 95.4 fl (80-100); Mean Platelet Volume 13.1 fl (7.4-10.4); Monocytes Absolute Auto 0.5 K/mm3 (0.1-0.6); Monocytes Percent Auto 6.3 % (2.6-8.5); Neutrophils Absolute Auto 5.8 K/mm3 (1.3-6.7); Neutrophils Percent Auto 67.4 % (45.5-73.1); Platelet Count Result 137 k/mm3 (150-375); Red Blood Count 4.53 M/mm3 (4.6-6.20); Red Cell Distribution Width 13.3 % (11.5-14.5); White Blood Count 8.6 K/mm3 (4.5-10.0)
[2024-05-08 10:40] LABS: Alanine Aminotransferase 10 U/L (6-50); Albumin Level 3.9 g/dL (3.5-5.1); Alkaline Phosphatase 103 U/L (38-126); Anion Gap 4 mmol/L (4-12); Aspartate Amino Transferase 21 U/L (17-59); Bilirubin,Total 0.4 mg/dL (0.2-1.3); Blood Urea Nitrogen 13 mg/dL (9-20); Calcium 8.7 mg/dL (8.4-10.2); Carbon Dioxide 30 mmol/L (22-30); Chloride 104 mmol/L (98-107); Estimated CRCL calculation 58 ml/min; Estimated Glomerular Filt Rate > 60; Glucose 113 mg/dL (65-110); INR 0.9; Potassium 4.9 mmol/L (3.4-5.0); Prothrombin Time 12.2 Seconds (11.1-14.7); Sodium 138 mmol/L (137-145)
[2024-05-08 10:41] LABS: Partial Thromboplastin Time 27.8 Seconds (22.3-36.8)
[2024-05-08 10:48] LABS: NT Pro B Type Natriuretic Pept 164 pg/mL (19.9-100)
== END 2024-05-08 11:50 | disposition home or self-care (01) ==
PROVIDERS: Emergency Provider Registered Nurse; PCP Family Medicine
DX: I10 Essential (primary) hypertension (principal); J44.9 Chronic obstructive pulmonary disease, unspecified; F17.210 Nicotine dependence, cigarettes, uncomplicated; E66.3 Overweight; Z68.29 Body mass index [BMI] 29.0-29.9, adult; N28.9 Disorder of kidney and ureter, unspecified; G47.33 Obstructive sleep apnea (adult) (pediatric); K21.9 Gastro-esophageal reflux disease without esophagitis; D51.9 Vitamin B12 deficiency anemia, unspecified; F41.9 Anxiety disorder, unspecified; Z87.11 Personal history of peptic ulcer disease; Z87.01 Personal history of pneumonia (recurrent); Z79.899 Other long term (current) drug therapy
CPT/HCPCS: 36415; 71046; 80053; 83880; 85025; 85055; 85610; 85730; 93005; 94640; 96361; 96374; 99284; J1100; J7030